=== PATIENT | male | born 1955 | race Hispanic/Latino ===

== ENCOUNTER 2018-02-12 16:54 | Inpatient (IN) | payer MEDICARE ==
[2018-02-12 17:45] LABS: BASO # 0.1 K/uL (0.0-0.2); BASO % 1.4 % (0.0-2.0); EOS # 0.2 K/uL (0.0-0.7); EOS % 2.1 % (0.0-4.0); HEMOGLOBIN 14.5 g/dL (12.0-18.0); LYMPH # 2.2 K/uL (1.0-4.3); LYMPH % 23.6 % (20.0-40.0); MEAN CELL VOLUME 94.5 fL (80.0-94.0); MEAN CORPUSCULAR HEMOGLOBIN 32.3 pg (27.0-31.0); MEAN CORPUSCULAR HGB CONC 34.2 g/dL (33.0-37.0); MEAN PLATELET VOLUME 10.9 fL (7.2-11.7); MONO # 0.8 K/uL (0.0-0.8); MONO % 8.7 % (0.0-10.0); NEUT % 64.2 % (50.0-75.0); RBC 4.47 Mil/uL (4.40-5.90); RED CELL DISTRIBUTION WIDTH 13.2 % (11.5-14.5); WHITE BLOOD COUNT 9.3 K/uL (4.8-10.8)
[2018-02-12 18:00] LABS: ALB/GLOB RATIO 1.3 (1.0-2.1); ALBUMIN 4.4 g/dL (3.5-5.0); ALT/SGPT 53 U/L (21-72); AST/SGOT 42 U/L (17-59); BLOOD UREA NITROGEN 16 mg/dL (9-20); CALCIUM 9.7 mg/dl (8.6-10.4); GFR AFRICAN-AMERICAN > 60; GFR NON-AFRICAN AMERICAN > 60
[2018-02-12 18:10] LABS: B-TYPE NATRIURETIC PEPTIDE 38.8 pg/mL (0-900)
[2018-02-12] MEDS ORDERED: Atropine Sulfate 1 mg/ml Vial (1 ml) IVP STA (18:15)
[2018-02-12 18:17] LABS: URINE BACTERIA RARE (<OCC); URINE BILIRUBIN NEGATIVE (NEGATIVE); URINE BLOOD NEGATIVE (NEGATIVE); URINE CLARITY Clear (Clear); URINE COLOR Yellow (YELLOW); URINE GLUCOSE (UA) 3+ mg/dL (Normal); URINE LEUKOCYTE ESTERASE NEG Leu/uL (Negative); URINE PROTEIN 1+ mg/dL (NEGATIVE)
[2018-02-12 18:30] LABS: INR 1.1; PROTHROMBIN TIME 12.2 SECONDS (9.7-12.2)
[2018-02-12] MEDS ORDERED: (Novolin R) Insulin Human Regular 100 units/ml vial IV STA (18:36)
[2018-02-12] MEDS ORDERED: (Novolin R) Insulin Human Regular 100 units/ml vial ONE (18:42)
--- NOTE | 2018-02-12 18:51 | C.PDOC ---
Time Seen by Provider: 02/12/18 17:09 Chief Complaint (Nursing): Dizziness/Lightheaded History Per: Patient, Family Onset/Duration Of Symptoms: Hrs (since this afternoon) Current Symptoms Are (Timing): Still Present Associated Symptoms Preceding Syncopal Episode: Lightheadedness, Worse With Standing Possible Causative Factor(s): Lightheaded W/Exertion Fall Associated With With Symptoms: No Severity: Moderate Additional History Per: Prior Records - Symptoms Of CVA Recent Head Trauma: No Past Medical History Reviewed: Historical Data, Nursing Documentation, Vital Signs Vital Signs: Last Vital Signs Temp 97.5 F L 02/12/18 16:59 Pulse 30 L 02/12/18 18:42 Resp 18 02/12/18 18:42 BP 145/49 L 02/12/18 18:42 Pulse Ox 96 02/12/18 18:51 - Medical History PMH: Diabetes, HTN Surgical History: No Surg Hx Family History: States: Unknown Family Hx - Social History Hx Tobacco Use: No Hx Alcohol Use: Yes Hx Substance Use: No - Immunization History Hx Tetanus Toxoid Vaccination: No Hx Influenza Vaccination: No Hx Pneumococcal Vaccination: No Review Of Systems Except As Marked, All Systems Reviewed And Found Negative. Constitutional: Negative for: Fever Cardiovascular: Positive for: Light Headedness. Negative for: Chest Pain Respiratory: Positive for: Shortness of Breath. Negative for: Hemoptysis Gastrointestinal: Negative for: Vomiting, Abdominal Pain, Diarrhea Musculoskeletal: Negative for: Neck Pain, Back Pain, Leg Pain Skin: Negative for: Rash Neurological: Negative for: Weakness, Numbness, Seizures Physical Exam - Physical Exam Appears: Non-toxic, No Acute Distress Skin: Normal Color, Warm, Dry Head: Atraumatic, Normacephalic Eye(s): bilateral: Normal Inspection, PERRL, EOMI Neck: Normal ROM, Supple Cardiovascular: Rhythm Regular (bradycardia) Respiratory: Normal Breath Sounds, No Accessory Muscle Use Gastrointestinal/Abdominal: Soft, No Tenderness Extremity: Normal ROM, No Pedal Edema, No Calf Tenderness Neurological/Psych: Oriented x3, Normal Motor, Normal Sensation ED Course And Treatment - Laboratory Results Result Diagrams: 02/12/18 17:36 02/12/18 17:36 Interpretation Of Abnormal: mild-mod hyperglycemia ECG: Viewed By Me, Discussed With [employer] Service Technician ECG Rhythm: 3rd Degree HB, Nonspecific Changes ECG Interpretation: Abnormal Rate From EC O2 Sat by Pulse Oximetry: 96 Pulse Ox Interpretation: Normal - Radiology CXR: Interpreted by Me, Viewed By Me CXR Interpretation: Yes: No Acute Disease - Physician Consult Information Physician Contacted: Preston Hunt Outcome Of Conversation: He recommended giving pt Atropine 0.5mg IVP. Then recommended starting pt on Dopamine drip after no response from Atropine. Pt d/ w Dr. Anderson who accepted to ICU. Progress - Interventions Interventions:: Observation, Oxygen - Medications Administered Intravenous: Other (Atropine. Insulin.) - Data Reviewed Data Reviewed: Lab, Diagnostic imaging, EKG, Old records - Patient Status Patient status: Unchanged - Critical Care Citical Care: Excluding Proc Time Critical Care Time: 60 minutes - Continuity of Care Discussed patient case with:: Patient, Family-HIPPA compliant, ED Nurse, On- call PMD-pt unassigned Discussed pt. case with [employer] sales consultant/specialty: Cardiology, Pulmonary/Crit. Care - Patient Plan Patient Plan: Admission, ICU Disposition Discussed With Dr.: Huong Nixon Comment: He accepted pt on his service. Doctor Will See Patient In The: Hospital Counseled Patient/Family Regarding: Studies Performed, Diagnosis - Disposition Disposition: HOSPITALIZED Disposition Time: 18:45 Condition: CRITICAL - Clinical Impression Clinical Impression: Heart block AV third degree
[2018-02-12] MEDS ORDERED: DOPamine 400mg/250ml D5W 400 MG/250 ML BAG IV PRN (18:54)
[2018-02-12] MEDS ORDERED: DOPamine 400mg/250ml D5W 400 MG/250 ML BAG IV ONE (19:00)
--- NOTE | 2018-02-12 19:48 | CP.PCM.CON ---
History of Present Illness - History of Present Illness History of Present Illness: 62 y/o male with pmx of DM, HTN presents to [facility] with c/o dizziness and nausea. PAtient was noted to be in 3rd degree block. Patient denies any abdominal pain, denies any dizziness, denies any blurry vision. PAtietn denies taking any medicaitons which decrease heart rate. Review of Systems - Review of Systems Review of Systems: (+)dizzines, (+)nausea Past Patient History - Infectious Disease Hx of Infectious Diseases: None - Past Medical History & Family History Past Medical History?: Yes - Past Social History Smoking Status: Never Smoked - CARDIAC Hx Hypertension: Yes - ENDOCRINE/METABOLIC Hx Diabetes Mellitus Type 1: Yes - PSYCHIATRIC Hx Substance Use: No - SURGICAL HISTORY Hx Surgeries: No - ANESTHESIA Hx Anesthesia: No Meds Allergies/Adverse Reactions: Allergies Allergy/AdvReac Type Severity Reaction Status Date / Time Penicillins Allergy Verified 02/12/18 17:05 - Medications Medications: Current Medications Dopamine HCl/Dextrose (Dopamine 400mg/250ml D5w) 400 mg in 250 mls @ 14.288 mls /hr IV .[id number] PRN; Protocol; 5 MCG/KG/MIN PRN Reason: TITRATE PER MD ORDER Last Admin: 02/12/18 19:04 Dose: 14.288 mls/hr Physical Exam - Head Exam Head Exam: ATRAUMATIC, NORMAL INSPECTION, NORMOCEPHALIC - Eye Exam Eye Exam: EOMI, Normal appearance Pupil Exam: NORMAL ACCOMODATION, PERRL - ENT Exam ENT Exam: Mucous Membranes Moist - Neck Exam Neck exam: Positive for: Normal Inspection - Respiratory Exam Respiratory Exam: Clear to Auscultation Bilateral, NORMAL BREATHING PATTERN - Cardiovascular Exam Cardiovascular Exam: REGULAR RHYTHM, +S1, +S2, +S4 - GI/Abdominal Exam GI & Abdominal Exam: Normal Bowel Sounds, Soft - Extremities Exam Extremities exam: Positive for: normal inspection Results - Vital Signs Recent Vital Signs: Last Vital Signs Temp 97.5 F L 02/12/18 16:59 Pulse 51 L 02/12/18 19:05 Resp 18 02/12/18 19:05 BP 145/69 02/12/18 19:05 Pulse Ox 99 02/12/18 19:05 - Labs Result Diagrams: 02/12/18 17:36 02/12/18 17:36 Labs: Laboratory Results - last 24 hr 02/12/18 02/12/18 02/12/18 17:01 17:36 17:36 WBC 9.3 RBC 4.47 Hgb 14.5 Hct 42.3 MCV 94.5 H MCH 32.3 H MCHC 34.2 RDW 13.2 Plt Count 203 MPV 10.9 Neut % (Auto) 64.2 Lymph % (Auto) 23.6 [place] % (Auto) 8.7 Eos % (Auto) 2.1 Baso % (Auto) 1.4 Neut # (Auto) 6.0 Lymph # (Auto) 2.2 [place] # (Auto) 0.8 Eos # (Auto) 0.2 Baso # (Auto) 0.1 PT INR APTT Sodium 139 Potassium 5.1 Chloride 99 Carbon Dioxide 27 Anion Gap 18 BUN 16 Creatinine 1.0 Est GFR ( Amer) > 60 Est GFR (Non-Af Amer) > 60 POC Glucose (mg/dL) 353 H Random Glucose 383 H Calcium 9.7 Magnesium 1.8 Total Bilirubin 0.7 AST 42 ALT 53 Alkaline Phosphatase 79 Troponin I < 0.0120 NT-Pro-B Natriuret Pep 38.8 Total Protein 7.7 Albumin 4.4 Globulin 3.4 Albumin/Globulin Ratio 1.3 Urine Color Urine Clarity Urine pH Ur Specific [place] Urine Protein Urine Glucose (UA) Urine Ketones Urine Blood Urine Nitrate Urine Bilirubin Urine Urobilinogen Ur Leukocyte Esterase Urine WBC (Auto) Urine RBC (Auto) Urine Bacteria 02/12/18 02/12/18 17:57 18:19 WBC RBC Hgb Hct MCV MCH MCHC RDW Plt Count MPV Neut % (Auto) Lymph % (Auto) [place] % (Auto) Eos % (Auto) Baso % (Auto) Neut # (Auto) Lymph # (Auto) [place] # (Auto) Eos # (Auto) Baso # (Auto) PT 12.2 INR 1.1 APTT 30 Sodium Potassium Chloride Carbon Dioxide Anion Gap BUN Creatinine Est GFR ( Amer) Est GFR (Non-Af Amer) POC Glucose (mg/dL) Random Glucose Calcium Magnesium Total Bilirubin AST ALT Alkaline Phosphatase Troponin I NT-Pro-B Natriuret Pep Total Protein Albumin Globulin Albumin/Globulin Ratio Urine Color Yellow Urine Clarity Clear Urine pH 6.0 Ur Specific [place] 1.029 Urine Protein 1+ H Urine Glucose (UA) 3+ H Urine Ketones Negative Urine Blood Negative Urine Nitrate Negative Urine Bilirubin Negative Urine Urobilinogen 4.0 Ur Leukocyte Esterase Neg Urine WBC (Auto) 1 Urine RBC (Auto) 1 Urine Bacteria Rare Assessment & Plan - Assessment and Plan (Free Text) Assessment: 3rd degree heart block: continue dopamine as per cardiology, will need EP for PPM, check TSH and RPR, lyme, etiology, ? ischemic or other etiologies, check echo, DM: takes oral metformin, will switch to sub q premeals, at risk of cad, start asa and statin -remains hemodynamically stable -NPO post midnight if PPM to be placed in AM (thursday) -DVT ppx heparin SQ -pud ppx not indicated Dr. Hunt informed and consulted regarding above patient. continue to monitor cc time 32 minutes d/e ER physician - Date & Time Date: 02/12/18 Time: 19:48
[2018-02-12] MEDS ORDERED: Aspirin 325 mg EC Tablets PO STA (20:00)
--- NOTE | 2018-02-12 21:01 | CP.PCM.HP ---
Past Patient History - Infectious Disease Hx of Infectious Diseases: None - Past Medical History & Family History Past Medical History?: Yes - Past Social History Smoking Status: Never Smoked - CARDIAC Hx Hypertension: Yes - ENDOCRINE/METABOLIC Hx Diabetes Mellitus Type 1: Yes - PSYCHIATRIC Hx Substance Use: No - SURGICAL HISTORY Hx Surgeries: No - ANESTHESIA Hx Anesthesia: No Meds Allergies/Adverse Reactions: Allergies Allergy/AdvReac Type Severity Reaction Status Date / Time Penicillins Allergy Verified 02/12/18 17:05 Physical Exam - Constitutional Appears: Well - Head Exam Head Exam: ATRAUMATIC, NORMAL INSPECTION, NORMOCEPHALIC - Eye Exam Eye Exam: EOMI, Normal appearance, PERRL Pupil Exam: NORMAL ACCOMODATION, PERRL - ENT Exam ENT Exam: Mucous Membranes Moist, Normal Exam - Neck Exam Neck exam: Positive for: Normal Inspection - Respiratory Exam Respiratory Exam: Decreased Breath Sounds - Cardiovascular Exam Cardiovascular Exam: REGULAR RHYTHM, +S1, +S2 - GI/Abdominal Exam GI & Abdominal Exam: Diminished Bowel Sounds, Soft - Rectal Exam Rectal Exam: Deferred Results - Vital Signs Recent Vital Signs: Last Vital Signs Temp 97.5 F L 02/12/18 16:59 Pulse 52 L 02/12/18 19:42 Resp 18 02/12/18 19:42 BP 128/60 02/12/18 19:42 Pulse Ox 98 02/12/18 19:42 - Labs Result Diagrams: 02/12/18 17:36 02/12/18 17:36 Labs: Laboratory Results - last 24 hr 02/12/18 02/12/18 02/12/18 17:01 17:36 17:36 WBC 9.3 RBC 4.47 Hgb 14.5 Hct 42.3 MCV 94.5 H MCH 32.3 H MCHC 34.2 RDW 13.2 Plt Count 203 MPV 10.9 Neut % (Auto) 64.2 Lymph % (Auto) 23.6 [place] % (Auto) 8.7 Eos % (Auto) 2.1 Baso % (Auto) 1.4 Neut # (Auto) 6.0 Lymph # (Auto) 2.2 [place] # (Auto) 0.8 Eos # (Auto) 0.2 Baso # (Auto) 0.1 PT INR APTT Sodium 139 Potassium 5.1 Chloride 99 Carbon Dioxide 27 Anion Gap 18 BUN 16 Creatinine 1.0 Est GFR ( Amer) > 60 Est GFR (Non-Af Amer) > 60 POC Glucose (mg/dL) 353 H Random Glucose 383 H Calcium 9.7 Magnesium 1.8 Total Bilirubin 0.7 AST 42 ALT 53 Alkaline Phosphatase 79 Troponin I < 0.0120 NT-Pro-B Natriuret Pep 38.8 Total Protein 7.7 Albumin 4.4 Globulin 3.4 Albumin/Globulin Ratio 1.3 Urine Color Urine Clarity Urine pH Ur Specific [place] Urine Protein Urine Glucose (UA) Urine Ketones Urine Blood Urine Nitrate Urine Bilirubin Urine Urobilinogen Ur Leukocyte Esterase Urine WBC (Auto) Urine RBC (Auto) Urine Bacteria 02/12/18 02/12/18 02/12/18 17:57 18:19 19:45 WBC RBC Hgb Hct MCV MCH MCHC RDW Plt Count MPV Neut % (Auto) Lymph % (Auto) [place] % (Auto) Eos % (Auto) Baso % (Auto) Neut # (Auto) Lymph # (Auto) [place] # (Auto) Eos # (Auto) Baso # (Auto) PT 12.2 INR 1.1 APTT 30 Sodium Potassium Chloride Carbon Dioxide Anion Gap BUN Creatinine Est GFR ( Amer) Est GFR (Non-Af Amer) POC Glucose (mg/dL) 88 Random Glucose Calcium Magnesium Total Bilirubin AST ALT Alkaline Phosphatase Troponin I NT-Pro-B Natriuret Pep Total Protein Albumin Globulin Albumin/Globulin Ratio Urine Color Yellow Urine Clarity Clear Urine pH 6.0 Ur Specific [place] 1.029 Urine Protein 1+ H Urine Glucose (UA) 3+ H Urine Ketones Negative Urine Blood Negative Urine Nitrate Negative Urine Bilirubin Negative Urine Urobilinogen 4.0 Ur Leukocyte Esterase Neg Urine WBC (Auto) 1 Urine RBC (Auto) 1 Urine Bacteria Rare
[2018-02-13] MEDS: DOPamine 400mg/250ml D5W 400 MG/250 ML BAG IV PRN ×2 (06:04→19:30)
[2018-02-13] MEDS: Sodium Chloride 0.9% 1,000 ML IV SCH ×3 (06:05→19:35)
[2018-02-13 06:20] LABS: BASO # 0.1 K/uL (0.0-0.2); BASO % 0.8 % (0.0-2.0); EOS # 0.1 K/uL (0.0-0.7); EOS % 1.4 % (0.0-4.0); HEMOGLOBIN 12.5 g/dL (12.0-18.0); LYMPH # 1.7 K/uL (1.0-4.3); LYMPH % 18.5 % (20.0-40.0); MEAN CELL VOLUME 94.2 fL (80.0-94.0); MEAN CORPUSCULAR HEMOGLOBIN 32.5 pg (27.0-31.0); MEAN CORPUSCULAR HGB CONC 34.5 g/dL (33.0-37.0); MEAN PLATELET VOLUME 11.2 fL (7.2-11.7); MONO # 0.6 K/uL (0.0-0.8); MONO % 6.3 % (0.0-10.0); NEUT # 6.8 K/uL (1.8-7.0); RBC 3.85 Mil/uL (4.40-5.90); RED CELL DISTRIBUTION WIDTH 13.2 % (11.5-14.5); WHITE BLOOD COUNT 9.3 K/uL (4.8-10.8)
[2018-02-13 06:40] LABS: INR 1.2; PROTHROMBIN TIME 12.9 SECONDS (9.7-12.2)
[2018-02-13 06:42] LABS: ALB/GLOB RATIO 1.2 (1.0-2.1); ALBUMIN 3.8 g/dL (3.5-5.0); ALT/SGPT 46 U/L (21-72); AST/SGOT 26 U/L (17-59); B-TYPE NATRIURETIC PEPTIDE 111 pg/mL (0-900); BLOOD UREA NITROGEN 15 mg/dL (9-20); CALCIUM 9.1 mg/dl (8.6-10.4); GFR AFRICAN-AMERICAN > 60; GFR NON-AFRICAN AMERICAN > 60
--- NOTE | 2018-02-13 09:36 | RAD ---
Date of service: 02/12/2018 HISTORY: Bradycardia COMPARISON: No prior. FINDINGS: LUNGS: No active pulmonary disease. PLEURA: No significant pleural effusion identified, no pneumothorax apparent. CARDIOVASCULAR: Normal. Note is made of external pacemaker device at the inferior chest. OSSEOUS STRUCTURES: No significant abnormalities. VISUALIZED UPPER ABDOMEN: Normal. OTHER FINDINGS: None. IMPRESSION: No acute cardiopulmonary disease appreciable. External pacemaker identified placed.
[2018-02-13] MEDS ORDERED: Glucagon Recombinant 1 mg Inj IM PRN (14:30)
[2018-02-13] MEDS ORDERED: Dextrose 50% SYRINGE Inj (50 ml) IV PRN (14:30)
--- NOTE | 2018-02-13 14:33 | CP.CCUPN ---
CCU Subjective - Physician Review Events Since Last Encounter (Free Text): 02/13/18 14:31 no complaints CCU Objective - Vital Signs / Intake & Output Vital Signs (Last 4 hours): Vital Signs Temp Pulse Resp BP Pulse Ox 02/13/18 14:00 40 L 18 97 02/13/18 13:58 41 L 21 130/61 02/13/18 13:00 44 L 11 L 98 02/13/18 12:58 42 L 15 138/58 L 97 02/13/18 12:00 97.8 F 44 L 21 98 02/13/18 11:58 42 L 18 135/56 L 97 02/13/18 11:00 44 L 18 99 02/13/18 10:58 44 L 15 135/57 L Intake and Output (Last 8hrs): Intake & Output 02/12/18 02/13/18 02/13/18 22:59 06:59 14:59 Intake Total 148.4 217.2 1194.4 Output Total 500 Balance 148.4 -282.8 1194.4 Weight 168 lb 168 lb Intake: IV 0 Intake, IV Amount 28.4 217.2 714.4 Right 28.4 211.5 600 Right Antecubital - Y- 5.7 114.4 Port Oral 120 0 480 Output: Urine 500 Urine, Voided 500 Other: # Voids Urine, Voided 0 0 0 # Bowel Movements 0 0 - Physical Exam Head: Positive for: Atraumatic, Normocephalic Pupils: Positive for: PERRL Extroacular Muscles: Positive for: EOMI Conjunctiva: Positive for: Normal Mouth: Positive for: Moist Mucous Membranes Neck: Positive for: Normal Range of Motion Respiratory/Chest: Positive for: Clear to Auscultation, Good Air Exchange Cardiovascular: Positive for: Normal S1, S2, Tachycardic Abdomen: Positive for: Normal Bowel Sounds. Negative for: Tenderness, Distention Upper Extremity: Positive for: Normal Inspection Lower Extremity: Positive for: Normal Inspection Neurological: Positive for: GCS=15, CN II-XII Intact Psychiatric: Positive for: Alert, Oriented x 3 - Medications Active Medications: Active Medications Generic Name Dose Route Start Last Admin Trade Name Freq PRN Reason Stop Dose Admin Aspirin 81 mg 02/13/18 10:00 02/13/18 09:15 Aspirin Chewable PO 81 mg DAILY ROSALIE Administration Famotidine 20 mg 02/13/18 10:00 02/13/18 09:15 Pepcid PO 20 mg DAILY ROSALIE Administration Heparin Sodium (Porcine) 5,000 units 02/12/18 22:00 02/13/18 14:07 Heparin SC 5,000 units Q8 ROSALIE Administration Sodium Chloride 1,000 mls @ 75 mls/hr 02/13/18 05:15 02/13/18 06:05 Sodium Chloride 0.9% IV 75 mls/hr .[id number] ROSALIE Administration Dopamine HCl/Dextrose 400 mg in 250 mls @ 5.715 mls/hr 02/13/18 05:49 06:19 Dopamine 400mg/250ml D5w IV 5 mcg/kg/min .Q24H PRN 14.288 mls/hr TITRATE PER MD ORDER Titration Protocol 2 MCG/KG/MIN Pneumococcal Polyvalent Vaccine 0.5 ml 02/14/18 10:00 Pneumovax 23 Vaccine IM 02/14/18 10:01 .ONCE ONE Rosuvastatin Calcium 5 mg 02/12/18 22:00 02/12/18 21:34 Crestor PO 5 mg HS ROSALIE Administration - Patient Studies Lab Studies: Lab Studies 02/13/18 02/13/18 02/13/18 Range/Units 12:34 06:28 06:05 WBC (4.8-10.8) K/uL RBC (4.40-5.90) Mil/uL Hgb (12.0-18.0) g/dL Hct (35.0-51.0) % MCV (80.0-94.0) fL MCH (27.0-31.0) pg MCHC (33.0-37.0) g/dL RDW (11.5-14.5) % Plt Count (130-400) K/uL MPV (7.2-11.7) fL Neut % (Auto) (50.0-75.0) % Lymph % (Auto) (20.0-40.0) % Craig % (Auto) (0.0-10.0) % Eos % (Auto) (0.0-4.0) % Baso % (Auto) (0.0-2.0) % Neut # (Auto) (1.8-7.0) K/uL Lymph # (Auto) (1.0-4.3) K/uL Craig # (Auto) (0.0-0.8) K/uL Eos # (Auto) (0.0-0.7) K/uL Baso # (Auto) (0.0-0.2) K/uL PT 12.9 H (9.7-12.2) SECONDS INR 1.2 APTT 28 (21-34) SECONDS Sodium (132-148) mmol/L Potassium (3.6-5.2) mmol/L Chloride (98-107) mmol/L Carbon Dioxide (22-30) mmol/L Anion Gap (10-20) BUN (9-20) mg/dL Creatinine (0.8-1.5) mg/dL Est GFR ( Amer) Est GFR (Non-Af Amer) POC Glucose (mg/dL) 145 H (65-110) mg/dL Random Glucose (75-110) mg/dL Calcium (8.6-10.4) mg/dl Phosphorus (2.5-4.5) mg/dL Magnesium (1.6-2.3) mg/dL Total Bilirubin (0.2-1.3) mg/dL AST (17-59) U/L ALT (21-72) U/L Alkaline Phosphatase (38-126) U/L Troponin I < 0.0120 (0.00-0.120) ng/mL NT-Pro-B Natriuret Pep (0-900) pg/mL Total Protein (6.3-8.3) g/dL Albumin (3.5-5.0) g/dL Globulin (2.2-3.9) gm/dL Albumin/Globulin Ratio (1.0-2.1) TSH 3rd Generation (0.46-4.68) mIU/L Urine Color (YELLOW) Urine Clarity (Clear) Urine pH (5.0-8.0) Ur Specific Chappell (1.003-1.030) Urine Protein (NEGATIVE) mg/dL Urine Glucose (UA) (Normal) mg/dL Urine Ketones (NEGATIVE) mg/dL Urine Blood (NEGATIVE) Urine Nitrate (NEGATIVE) Urine Bilirubin (NEGATIVE) Urine Urobilinogen (0.2-1.0) mg/dL Ur Leukocyte Esterase (Negative) Jaida/uL Urine WBC (Auto) (0-5) /hpf Urine RBC (Auto) (0-3) /hpf Urine Bacteria (<OCC) 02/13/18 02/13/18 02/13/18 Range/Units 06:05 06:05 01:35 WBC 9.3 (4.8-10.8) K/uL RBC 3.85 L (4.40-5.90) Mil/uL Hgb 12.5 D (12.0-18.0) g/dL Hct 36.3 (35.0-51.0) % MCV 94.2 H (80.0-94.0) fL MCH 32.5 H (27.0-31.0) pg MCHC 34.5 (33.0-37.0) g/dL RDW 13.2 (11.5-14.5) % Plt Count 185 (130-400) K/uL MPV 11.2 (7.2-11.7) fL Neut % (Auto) 73.0 (50.0-75.0) % Lymph % (Auto) 18.5 L (20.0-40.0) % Craig % (Auto) 6.3 (0.0-10.0) % Eos % (Auto) 1.4 (0.0-4.0) % Baso % (Auto) 0.8 (0.0-2.0) % Neut # (Auto) 6.8 (1.8-7.0) K/uL Lymph # (Auto) 1.7 (1.0-4.3) K/uL Craig # (Auto) 0.6 (0.0-0.8) K/uL Eos # (Auto) 0.1 (0.0-0.7) K/uL Baso # (Auto) 0.1 (0.0-0.2) K/uL PT (9.7-12.2) SECONDS INR APTT (21-34) SECONDS Sodium 142 (132-148) mmol/L Potassium 4.1 (3.6-5.2) mmol/L Chloride 103 (98-107) mmol/L Carbon Dioxide 26 (22-30) mmol/L Anion Gap 16 (10-20) BUN 15 (9-20) mg/dL Creatinine 0.8 (0.8-1.5) mg/dL Est GFR ( Amer) > 60 Est GFR (Non-Af Amer) > 60 POC Glucose (mg/dL) (65-110) mg/dL Random Glucose 135 H (75-110) mg/dL Calcium 9.1 (8.6-10.4) mg/dl Phosphorus 3.6 (2.5-4.5) mg/dL Magnesium 1.7 (1.6-2.3) mg/dL Total Bilirubin 0.6 (0.2-1.3) mg/dL AST 26 (17-59) U/L ALT 46 (21-72) U/L Alkaline Phosphatase 65 (38-126) U/L Troponin I < 0.0120 < 0.0120 (0.00-0.120) ng/mL NT-Pro-B Natriuret Pep 111 (0-900) pg/mL Total Protein 6.9 (6.3-8.3) g/dL Albumin 3.8 (3.5-5.0) g/dL Globulin 3.1 (2.2-3.9) gm/dL Albumin/Globulin Ratio 1.2 (1.0-2.1) TSH 3rd Generation 1.48 (0.46-4.68) mIU/L Urine Color (YELLOW) Urine Clarity (Clear) Urine pH (5.0-8.0) Ur Specific Chappell (1.003-1.030) Urine Protein (NEGATIVE) mg/dL Urine Glucose (UA) (Normal) mg/dL Urine Ketones (NEGATIVE) mg/dL Urine Blood (NEGATIVE) Urine Nitrate (NEGATIVE) Urine Bilirubin (NEGATIVE) Urine Urobilinogen (0.2-1.0) mg/dL Ur Leukocyte Esterase (Negative) Jaida/uL Urine WBC (Auto) (0-5) /hpf Urine RBC (Auto) (0-3) /hpf Urine Bacteria (<OCC) 02/12/18 02/12/18 02/12/18 Range/Units 22:01 19:45 18:19 WBC (4.8-10.8) K/uL RBC (4.40-5.90) Mil/uL Hgb (12.0-18.0) g/dL Hct (35.0-51.0) % MCV (80.0-94.0) fL MCH (27.0-31.0) pg MCHC (33.0-37.0) g/dL RDW (11.5-14.5) % Plt Count (130-400) K/uL MPV (7.2-11.7) fL Neut % (Auto) (50.0-75.0) % Lymph % (Auto) (20.0-40.0) % Craig % (Auto) (0.0-10.0) % Eos % (Auto) (0.0-4.0) % Baso % (Auto) (0.0-2.0) % Neut # (Auto) (1.8-7.0) K/uL Lymph # (Auto) (1.0-4.3) K/uL Craig # (Auto) (0.0-0.8) K/uL Eos # (Auto) (0.0-0.7) K/uL Baso # (Auto) (0.0-0.2) K/uL PT 12.2 (9.7-12.2) SECONDS INR 1.1 APTT 30 (21-34) SECONDS Sodium (132-148) mmol/L Potassium (3.6-5.2) mmol/L Chloride (98-107) mmol/L Carbon Dioxide (22-30) mmol/L Anion Gap (10-20) BUN (9-20) mg/dL Creatinine (0.8-1.5) mg/dL Est GFR ( Amer) Est GFR (Non-Af Amer) POC Glucose (mg/dL) 144 H 88 (65-110) mg/dL Random Glucose (75-110) mg/dL Calcium (8.6-10.4) mg/dl Phosphorus (2.5-4.5) mg/dL Magnesium (1.6-2.3) mg/dL Total Bilirubin (0.2-1.3) mg/dL AST (17-59) U/L ALT (21-72) U/L Alkaline Phosphatase (38-126) U/L Troponin I (0.00-0.120) ng/mL NT-Pro-B Natriuret Pep (0-900) pg/mL Total Protein (6.3-8.3) g/dL Albumin (3.5-5.0) g/dL Globulin (2.2-3.9) gm/dL Albumin/Globulin Ratio (1.0-2.1) TSH 3rd Generation (0.46-4.68) mIU/L Urine Color (YELLOW) Urine Clarity (Clear) Urine pH (5.0-8.0) Ur Specific Chappell (1.003-1.030) Urine Protein (NEGATIVE) mg/dL Urine Glucose (UA) (Normal) mg/dL Urine Ketones (NEGATIVE) mg/dL Urine Blood (NEGATIVE) Urine Nitrate (NEGATIVE) Urine Bilirubin (NEGATIVE) Urine Urobilinogen (0.2-1.0) mg/dL Ur Leukocyte Esterase (Negative) Jaida/uL Urine WBC (Auto) (0-5) /hpf Urine RBC (Auto) (0-3) /hpf Urine Bacteria (<OCC) 02/12/18 02/12/18 02/12/18 Range/Units 17:57 17:36 17:36 WBC 9.3 (4.8-10.8) K/uL RBC 4.47 (4.40-5.90) Mil/uL Hgb 14.5 (12.0-18.0) g/dL Hct 42.3 (35.0-51.0) % MCV 94.5 H (80.0-94.0) fL MCH 32.3 H (27.0-31.0) pg MCHC 34.2 (33.0-37.0) g/dL RDW 13.2 (11.5-14.5) % Plt Count 203 (130-400) K/uL MPV 10.9 (7.2-11.7) fL Neut % (Auto) 64.2 (50.0-75.0) % Lymph % (Auto) 23.6 (20.0-40.0) % Craig % (Auto) 8.7 (0.0-10.0) % Eos % (Auto) 2.1 (0.0-4.0) % Baso % (Auto) 1.4 (0.0-2.0) % Neut # (Auto) 6.0 (1.8-7.0) K/uL Lymph # (Auto) 2.2 (1.0-4.3) K/uL Craig # (Auto) 0.8 (0.0-0.8) K/uL Eos # (Auto) 0.2 (0.0-0.7) K/uL Baso # (Auto) 0.1 (0.0-0.2) K/uL PT (9.7-12.2) SECONDS INR APTT (21-34) SECONDS Sodium 139 (132-148) mmol/L Potassium 5.1 (3.6-5.2) mmol/L Chloride 99 (98-107) mmol/L Carbon Dioxide 27 (22-30) mmol/L Anion Gap 18 (10-20) BUN 16 (9-20) mg/dL Creatinine 1.0 (0.8-1.5) mg/dL Est GFR ( Amer) > 60 Est GFR (Non-Af Amer) > 60 POC Glucose (mg/dL) (65-110) mg/dL Random Glucose 383 H (75-110) mg/dL Calcium 9.7 (8.6-10.4) mg/dl Phosphorus (2.5-4.5) mg/dL Magnesium 1.8 (1.6-2.3) mg/dL Total Bilirubin 0.7 (0.2-1.3) mg/dL AST 42 (17-59) U/L ALT 53 (21-72) U/L Alkaline Phosphatase 79 (38-126) U/L Troponin I < 0.0120 (0.00-0.120) ng/mL NT-Pro-B Natriuret Pep 38.8 (0-900) pg/mL Total Protein 7.7 (6.3-8.3) g/dL Albumin 4.4 (3.5-5.0) g/dL Globulin 3.4 (2.2-3.9) gm/dL Albumin/Globulin Ratio 1.3 (1.0-2.1) TSH 3rd Generation (0.46-4.68) mIU/L Urine Color Yellow (YELLOW) Urine Clarity Clear (Clear) Urine pH 6.0 (5.0-8.0) Ur Specific Chappell 1.029 (1.003-1.030) Urine Protein 1+ H (NEGATIVE) mg/dL Urine Glucose (UA) 3+ H (Normal) mg/dL Urine Ketones Negative (NEGATIVE) mg/dL Urine Blood Negative (NEGATIVE) Urine Nitrate Negative (NEGATIVE) Urine Bilirubin Negative (NEGATIVE) Urine Urobilinogen 4.0 (0.2-1.0) mg/dL Ur Leukocyte Esterase Neg (Negative) Jaida/uL Urine WBC (Auto) 1 (0-5) /hpf Urine RBC (Auto) 1 (0-3) /hpf Urine Bacteria Rare (<OCC) 02/12/ Range/Units 17:01 WBC (4.8-10.8) K/uL RBC (4.40-5.90) Mil/uL Hgb (12.0-18.0) g/dL Hct (35.0-51.0) % MCV (80.0-94.0) fL MCH (27.0-31.0) pg MCHC (33.0-37.0) g/dL RDW (11.5-14.5) % Plt Count (130-400) K/uL MPV (7.2-11.7) fL Neut % (Auto) (50.0-75.0) % Lymph % (Auto) (20.0-40.0) % Craig % (Auto) (0.0-10.0) % Eos % (Auto) (0.0-4.0) % Baso % (Auto) (0.0-2.0) % Neut # (Auto) (1.8-7.0) K/uL Lymph # (Auto) (1.0-4.3) K/uL Craig # (Auto) (0.0-0.8) K/uL Eos # (Auto) (0.0-0.7) K/uL Baso # (Auto) (0.0-0.2) K/uL PT (9.7-12.2) SECONDS INR APTT (21-34) SECONDS Sodium (132-148) mmol/L Potassium (3.6-5.2) mmol/L Chloride (98-107) mmol/L Carbon Dioxide (22-30) mmol/L Anion Gap (10-20) BUN (9-20) mg/dL Creatinine (0.8-1.5) mg/dL Est GFR ( Amer) Est GFR (Non-Af Amer) POC Glucose (mg/dL) 353 H (65-110) mg/dL Random Glucose (75-110) mg/dL Calcium (8.6-10.4) mg/dl Phosphorus (2.5-4.5) mg/dL Magnesium (1.6-2.3) mg/dL Total Bilirubin (0.2-1.3) mg/dL AST (17-59) U/L ALT (21-72) U/L Alkaline Phosphatase (38-126) U/L Troponin I (0.00-0.120) ng/mL NT-Pro-B Natriuret Pep (0-900) pg/mL Total Protein (6.3-8.3) g/dL Albumin (3.5-5.0) g/dL Globulin (2.2-3.9) gm/dL Albumin/Globulin Ratio (1.0-2.1) TSH 3rd Generation (0.46-4.68) mIU/L Urine Color (YELLOW) Urine Clarity (Clear) Urine pH (5.0-8.0) Ur Specific Chappell (1.003-1.030) Urine Protein (NEGATIVE) mg/dL Urine Glucose (UA) (Normal) mg/dL Urine Ketones (NEGATIVE) mg/dL Urine Blood (NEGATIVE) Urine Nitrate (NEGATIVE) Urine Bilirubin (NEGATIVE) Urine Urobilinogen (0.2-1.0) mg/dL Ur Leukocyte Esterase (Negative) Jaida/uL Urine WBC (Auto) (0-5) /hpf Urine RBC (Auto) (0-3) /hpf Urine Bacteria (<OCC) Laboratory Results - last 24 hr 02/12/18 02/12/18 02/12/18 17:01 17:36 17:36 WBC 9.3 RBC 4.47 Hgb 14.5 Hct 42.3 MCV 94.5 H MCH 32.3 H MCHC 34.2 RDW 13.2 Plt Count 203 MPV 10.9 Neut % (Auto) 64.2 Lymph % (Auto) 23.6 Craig % (Auto) 8.7 Eos % (Auto) 2.1 Baso % (Auto) 1.4 Neut # (Auto) 6.0 Lymph # (Auto) 2.2 Craig # (Auto) 0.8 Eos # (Auto) 0.2 Baso # (Auto) 0.1 PT INR APTT Sodium 139 Potassium 5.1 Chloride 99 Carbon Dioxide 27 Anion Gap 18 BUN 16 Creatinine 1.0 Est GFR ( Amer) > 60 Est GFR (Non-Af Amer) > 60 POC Glucose (mg/dL) 353 H Random Glucose 383 H Calcium 9.7 Phosphorus Magnesium 1.8 Total Bilirubin 0.7 AST 42 ALT 53 Alkaline Phosphatase 79 Troponin I < 0.0120 NT-Pro-B Natriuret Pep 38.8 Total Protein 7.7 Albumin 4.4 Globulin 3.4 Albumin/Globulin Ratio 1.3 TSH 3rd Generation Urine Color Urine Clarity Urine pH Ur Specific Chappell Urine Protein Urine Glucose (UA) Urine Ketones Urine Blood Urine Nitrate Urine Bilirubin Urine Urobilinogen Ur Leukocyte Esterase Urine WBC (Auto) Urine RBC (Auto) Urine Bacteria 02/12/18 02/12/18 02/12/18 17:57 18:19 19:45 WBC RBC Hgb Hct MCV MCH MCHC RDW Plt Count MPV Neut % (Auto) Lymph % (Auto) Craig % (Auto) Eos % (Auto) Baso % (Auto) Neut # (Auto) Lymph # (Auto) Craig # (Auto) Eos # (Auto) Baso # (Auto) PT 12.2 INR 1.1 APTT 30 Sodium Potassium Chloride Carbon Dioxide Anion Gap BUN Creatinine Est GFR ( Amer) Est GFR (Non-Af Amer) POC Glucose (mg/dL) 88 Random Glucose Calcium Phosphorus Magnesium Total Bilirubin AST ALT Alkaline Phosphatase Troponin I NT-Pro-B Natriuret Pep Total Protein Albumin Globulin Albumin/Globulin Ratio TSH 3rd Generation Urine Color Yellow Urine Clarity Clear Urine pH 6.0 Ur Specific Chappell 1.029 Urine Protein 1+ H Urine Glucose (UA) 3+ H Urine Ketones Negative Urine Blood Negative Urine Nitrate Negative Urine Bilirubin Negative Urine Urobilinogen 4.0 Ur Leukocyte Esterase Neg Urine WBC (Auto) 1 Urine RBC (Auto) 1 Urine Bacteria Rare 02/12/18 02/13/18 02/13/18 22:01 01:35 06:05 WBC RBC Hgb Hct MCV MCH MCHC RDW Plt Count MPV Neut % (Auto) Lymph % (Auto) Craig % (Auto) Eos % (Auto) Baso % (Auto) Neut # (Auto) Lymph # (Auto) Craig # (Auto) Eos # (Auto) Baso # (Auto) PT INR APTT Sodium 142 Potassium 4.1 Chloride 103 Carbon Dioxide 26 Anion Gap 16 BUN 15 Creatinine 0.8 Est GFR ( Amer) > 60 Est GFR (Non-Af Amer) > 60 POC Glucose (mg/dL) 144 H Random Glucose 135 H Calcium 9.1 Phosphorus 3.6 Magnesium 1.7 Total Bilirubin 0.6 AST 26 ALT 46 Alkaline Phosphatase 65 Troponin I < 0.0120 < 0.0120 NT-Pro-B Natriuret Pep 111 Total Protein 6.9 Albumin 3.8 Globulin 3.1 Albumin/Globulin Ratio 1.2 TSH 3rd Generation 1.48 Urine Color Urine Clarity Urine pH Ur Specific Chappell Urine Protein Urine Glucose (UA) Urine Ketones Urine Blood Urine Nitrate Urine Bilirubin Urine Urobilinogen Ur Leukocyte Esterase Urine WBC (Auto) Urine RBC (Auto) Urine Bacteria 02/13/18 02/13/18 02/13/18 06:05 06:05 06:28 WBC 9.3 RBC 3.85 L Hgb 12.5 D Hct 36.3 MCV 94.2 H MCH 32.5 H MCHC 34.5 RDW 13.2 Plt Count 185 MPV 11.2 Neut % (Auto) 73.0 Lymph % (Auto) 18.5 L Craig % (Auto) 6.3 Eos % (Auto) 1.4 Baso % (Auto) 0.8 Neut # (Auto) 6.8 Lymph # (Auto) 1.7 Craig # (Auto) 0.6 Eos # (Auto) 0.1 Baso # (Auto) 0.1 PT 12.9 H INR 1.2 APTT 28 Sodium Potassium Chloride Carbon Dioxide Anion Gap BUN Creatinine Est GFR ( Amer) Est GFR (Non-Af Amer) POC Glucose (mg/dL) 145 H Random Glucose Calcium Phosphorus Magnesium Total Bilirubin AST ALT Alkaline Phosphatase Troponin I NT-Pro-B Natriuret Pep Total Protein Albumin Globulin Albumin/Globulin Ratio TSH 3rd Generation Urine Color Urine Clarity Urine pH Ur Specific Chappell Urine Protein Urine Glucose (UA) Urine Ketones Urine Blood Urine Nitrate Urine Bilirubin Urine Urobilinogen Ur Leukocyte Esterase Urine WBC (Auto) Urine RBC (Auto) Urine Bacteria 02/13/18 12:34 WBC RBC Hgb Hct MCV MCH MCHC RDW Plt Count MPV Neut % (Auto) Lymph % (Auto) Craig % (Auto) Eos % (Auto) Baso % (Auto) Neut # (Auto) Lymph # (Auto) Craig # (Auto) Eos # (Auto) Baso # (Auto) PT INR APTT Sodium Potassium Chloride Carbon Dioxide Anion Gap BUN Creatinine Est GFR ( Amer) Est GFR (Non-Af Amer) POC Glucose (mg/dL) Random Glucose Calcium Phosphorus Magnesium Total Bilirubin AST ALT Alkaline Phosphatase Troponin I < 0.0120 NT-Pro-B Natriuret Pep Total Protein Albumin Globulin Albumin/Globulin Ratio TSH 3rd Generation Urine Color Urine Clarity Urine pH Ur Specific Chappell Urine Protein Urine Glucose (UA) Urine Ketones Urine Blood Urine Nitrate Urine Bilirubin Urine Urobilinogen Ur Leukocyte Esterase Urine WBC (Auto) Urine RBC (Auto) Urine Bacteria EKG/Cardiology Studies: Cardiology / EKG Studies 02/12/18 17:23 ELECTROCARDIOGRAM Stat Comment: Mode Of Transportation: BED Reason For Exam: Dizzy Fingerstick Blood Sugar Results: 144 Review of Systems - Review of Systems All systems: reviewed and no additional remarkable complaints except (no complaints) Critical Care Progress Note - Nutrition Nutrition: Nutrition Category Date Time Status Diabetic [Consistent Carbohydrate] [DIET] Diets 02/12/18 Dinner Active Assessment/Plan (1) Heart block AV third degree Assessment and plan: 62 y/o male with pmx of DM, HTN presents to [facility] with c/o dizziness and nausea. PAtient was noted to be in 3rd degree block. Neuro: alert and oriented x 3 Pulm: no acute issues, breathing spontaneously on room air. CV: On dopamine to counter bradycardia from 3rd degree AV block, permanent PM placement planned. Cardio - Dr. Hunt Renal: no acute issues, urine output wnl GI: regular diet ID: no acute issues GI proph - not currently indicated DVT proph - heparin sq Code status - full code Critical Care Time spent 35 minutes Multi-disciplinary rounds were performed with house staff, nursing, speech therapy, respiratory therapy, pharmacy and nutrition with integrated input from the primary team/attending and other consulting services. The documented time is cumulative and includes review of patient data/exams/labs/chart review and examination of the patient on rounds and throughout the day; time is exclusive of any procedures or teaching time. Current Visit: Yes Status: Acute
[2018-02-13] MEDS ORDERED: Sodium Chloride 0.9% 500 ML IV ONE (15:17)
--- NOTE | 2018-02-13 15:40 | CP.PCM.PN ---
Subjective - Date & Time of Evaluation Date of Evaluation: 02/13/18 Time of Evaluation: 11:30 - Subjective Subjective: clinically same Objective - Vital Signs/Intake and Output Vital Signs (last 24 hours): Temp Pulse Resp BP Pulse Ox 97.8 F 44 L 25 H 128/72 97 02/13/18 12:00 02/13/18 15:22 02/13/18 15:22 02/13/18 15:22 02/13/18 15:22 Intake and Output: 02/13/18 02/13/18 06:59 18:59 Intake Total 365.6 1888.0 Output Total 500 Balance -134.4 1888.0 - Medications Medications: Current Medications Aspirin (Aspirin Chewable) 81 mg PO DAILY [facility] Last Admin: 02/13/18 09:15 Dose: 81 mg Dextrose (Dextrose 50% Inj) 0 ml IV STAT PRN; Protocol PRN Reason: Hypoglycemia Protocol Dextrose (Glutose 15) 0 gm PO ONCE PRN; Protocol PRN Reason: Hypoglycemia Protocol Famotidine (Pepcid) 20 mg PO DAILY [facility] Last Admin: 02/13/18 09:15 Dose: 20 mg Glucagon (Glucagen Diagnostic Kit) 0 mg IM STAT PRN; Protocol PRN Reason: Hypoglycemia Protocol Heparin Sodium (Porcine) (Heparin) 5,000 units SC Q8 [facility] Last Admin: 02/13/18 14:07 Dose: 5,000 units Sodium Chloride (Sodium Chloride 0.9%) 1,000 mls @ 75 mls/hr IV .[id number] [facility] Last Admin: 02/13/18 06:05 Dose: 75 mls/hr Dopamine HCl/Dextrose (Dopamine 400mg/250ml D5w) 400 mg in 250 mls @ 5.715 mls/ hr IV .Q24H PRN; Protocol; 2 MCG/KG/MIN PRN Reason: TITRATE PER MD ORDER Last Titration: 02/13/18 15:15 Dose: 10 mcg/kg/min, 28.577 mls/hr Dextrose (Dextrose 5% In Water 1000 Ml) 1,000 mls @ 0 mls/hr IV .Q0M PRN; Protocol; Per Protocol PRN Reason: Hypoglycemia Protocol Sodium Chloride (Sodium Chloride 0.9%) 500 mls @ 1,000 mls/hr IV .Q30M ONE Stop: 02/13/18 15:46 Last Admin: 02/13/18 15:23 Dose: 1,000 mls/hr Insulin Aspart (Novolog) 0 unit SC ACHS [facility] PRN Reason: Protocol Pneumococcal Polyvalent Vaccine (Pneumovax 23 Vaccine) 0.5 ml IM .ONCE ONE Stop: 02/14/18 10:01 Rosuvastatin Calcium (Crestor) 5 mg PO HS [facility] Last Admin: 02/12/18 21:34 Dose: 5 mg - Labs Labs: 02/13/18 06:05 02/13/18 06:05 PT 12.9 SECONDS (9.7-12.2) H 02/13/18 06:05 INR 1.2 02/13/18 06:05 APTT 28 SECONDS (21-34) 02/13/18 06:05 - Constitutional Appears: Well - Head Exam Head Exam: ATRAUMATIC, NORMAL INSPECTION, NORMOCEPHALIC - Eye Exam Eye Exam: EOMI, Normal appearance, PERRL Pupil Exam: NORMAL ACCOMODATION, PERRL - ENT Exam ENT Exam: Mucous Membranes Moist, Normal Exam - Neck Exam Neck Exam: Full ROM, Normal Inspection. absent: Lymphadenopathy - Respiratory Exam Respiratory Exam: Decreased Breath Sounds - Cardiovascular Exam Cardiovascular Exam: REGULAR RHYTHM, +S1, +S2 - GI/Abdominal Exam GI & Abdominal Exam: Soft, Diminished Bowel Sounds - Rectal Exam Rectal Exam: Deferred
--- NOTE | 2018-02-13 16:06 | CARD ---
APPROVED REPORT Date of service: 02/13/2018 EXAM: Two-dimensional and M-mode echocardiogram with Doppler and color Doppler. Other Information Quality : GoodRhythm : INDICATION EVALUATION OF LV FUNCTION 2D DIMENSIONS IVSd1.2 (0.7-1.1cm)Aortic Root (2D)2.9 (2.0-3.7cm) LVDd3.9 (3.9-5.9cm)LVOT Diameter1.9 (1.8-2.4cm) PWd1.2 (0.7-1.1cm)LVDs2.9 (2.5-4.0cm) FS (%) 25.7 %LVEF (%)51.1 (>50%) M-Mode DIMENSIONS Left Atrium (MM)4.23 (2.5-4.0cm)Aortic Root3.58 (2.2-3.7cm) Aortic Cusp Exc.1.72 (1.5-2.0cm) Mitral Valve MV E Dzvyjzqn109.5cm/sMV A Ligumkmh015.8cm/sE/A ratio1.0 TDI E/Lateral E'0.0E/Medial E'0.0 Tricuspid Valve TR Peak Sjgdwgmt473cw/sTR Peak Gr.[id number] LEFT VENTRICLE The left ventricle is normal size. There is normal left ventricular wall thickness. The left ventricular function is normal. The left ventricular ejection fraction is within the normal range. There is normal LV segmental wall motion. The left ventricular diastolic function is normal. RIGHT VENTRICLE The right ventricle is normal size. ATRIA The left atrium is mildly dilated. The right atrium size is normal. AORTIC VALVE The aortic valve is normal in structure. MITRAL VALVE Mitral regurgitation is mild. TRICUSPID VALVE There is mild tricuspid regurgitation. <Conclusion> Normal LV systolic function. Borderline dilated LA. Mild MR. Mild TR.
[2018-02-13 16:54] LABS: CK-MB 0.57 ng/mL (0.0-3.38)
[2018-02-13] MEDS: (Novolog) Insulin Aspart, Recombinant 100 u/ml 10 ml vial SC SCH ×2 (16:59→22:00)
[2018-02-13] MEDS ORDERED: Aritificial Tears (15ml) OU PRN (19:46)
[2018-02-14] MEDS: DOPamine 400mg/250ml D5W 400 MG/250 ML BAG IV PRN ×3 (04:25→22:35)
[2018-02-14 06:15] LABS: BASO # 0.1 K/uL (0.0-0.2); BASO % 0.9 % (0.0-2.0); EOS # 0.1 K/uL (0.0-0.7); EOS % 1.9 % (0.0-4.0); HEMOGLOBIN 13.4 g/dL (12.0-18.0); LYMPH % 26.3 % (20.0-40.0); MEAN CELL VOLUME 94.4 fL (80.0-94.0); MEAN CORPUSCULAR HEMOGLOBIN 32.1 pg (27.0-31.0); MONO # 0.4 K/uL (0.0-0.8); MONO % 5.9 % (0.0-10.0); NEUT # 4.9 K/uL (1.8-7.0); RBC 4.18 Mil/uL (4.40-5.90); RED CELL DISTRIBUTION WIDTH 12.9 % (11.5-14.5); WHITE BLOOD COUNT 7.6 K/uL (4.8-10.8)
[2018-02-14 06:39] LABS: ALB/GLOB RATIO 1.2 (1.0-2.1); ALBUMIN 4.1 g/dL (3.5-5.0); ALT/SGPT 40 U/L (21-72); AST/SGOT 20 U/L (17-59); BLOOD UREA NITROGEN 11 mg/dL (9-20); CALCIUM 9.4 mg/dl (8.6-10.4); GFR AFRICAN-AMERICAN > 60; GFR NON-AFRICAN AMERICAN > 60
[2018-02-14] MEDS: (Novolog) Insulin Aspart, Recombinant 100 u/ml 10 ml vial SC SCH ×4 (07:53→22:03)
[2018-02-14] MEDS: Sodium Chloride 0.9% 1,000 ML IV SCH ×2 (09:18→21:58)
[2018-02-14] MEDS ORDERED: Pneumococcal 23-Valent Vaccine IM ONE (10:00)
--- NOTE | 2018-02-14 13:51 | CP.CCUPN ---
CCU Subjective - Physician Review Events Since Last Encounter (Free Text): 02/14/18 13:36 no complaints. CCU Objective - Vital Signs / Intake & Output Vital Signs (Last 4 hours): Vital Signs Pulse Resp BP Pulse Ox 02/14/18 13:25 40 L 18 143/68 97 02/14/18 11:01 55 L 20 150/66 97 02/14/18 11:00 58 L 16 98 02/14/18 10:01 67 13 137/36 L 97 02/14/18 10:00 60 15 98 Intake and Output (Last 8hrs): Intake & Output 02/13/18 02/14/18 02/14/18 22:59 06:59 14:59 Intake Total 1778.8 1198.8 1068.0 Output Total 400 1400 Balance 1378.8 -201.2 1068.0 Weight 163 lb Intake: IV 250 250 250 Intake, IV Amount 1288.8 828.8 518.0 Right 835 Right Antecubital 225 600 375 Right Antecubital Y-Port 228.8 228.8 143.0 Oral 240 120 300 Output: Urine 400 1400 Urine, Voided 400 1400 Other: # Voids Urine, Voided 1 1 - Physical Exam Head: Positive for: Atraumatic, Normocephalic Pupils: Positive for: PERRL Extroacular Muscles: Positive for: EOMI Conjunctiva: Positive for: Normal Mouth: Positive for: Moist Mucous Membranes Neck: Positive for: Normal Range of Motion Respiratory/Chest: Positive for: Clear to Auscultation, Good Air Exchange Cardiovascular: Positive for: Normal S1, S2, Tachycardic Abdomen: Positive for: Normal Bowel Sounds. Negative for: Tenderness, Distention Upper Extremity: Positive for: Normal Inspection Lower Extremity: Positive for: Normal Inspection Neurological: Positive for: GCS=15, CN II-XII Intact Psychiatric: Positive for: Alert, Oriented x 3 - Medications Active Medications: Active Medications Generic Name Dose Route Start Last Admin Trade Name Freq PRN Reason Stop Dose Admin Acetaminophen 650 mg 02/13/18 21:04 02/13/18 21:15 Tylenol 325mg Tab PO 650 mg Q6 PRN Administration Headache Artificial Tears 0.1 ml 02/13/18 19:46 02/13/18 21:10 Artificial Tears OU 1 drop Q8H PRN Administration Dry eyes Aspirin 81 mg 02/13/18 10:00 02/14/18 09:19 Aspirin Chewable PO 81 mg DAILY ROSALIE Administration Atropine Sulfate 0.5 mg 02/13/18 15:00 Atropine IVP PRN PRN Symptomatic Bradycardia Clopidogrel Bisulfate 75 mg 02/14/18 10:00 02/14/18 09:19 Plavix PO 75 mg DAILY ROSALIE Administration Dextrose 0 ml 02/13/18 14:30 Dextrose 50% Inj IV STAT PRN Hypoglycemia Protocol Protocol Dextrose 0 gm 02/13/18 14:30 Glutose 15 PO ONCE PRN Hypoglycemia Protocol Protocol Famotidine 20 mg 02/13/18 10:00 02/14/18 09:19 Pepcid PO 20 mg DAILY ROSALIE Administration Glucagon 0 mg 02/13/18 14:30 Glucagen Diagnostic Kit IM STAT PRN Hypoglycemia Protocol Protocol Heparin Sodium (Porcine) 5,000 units 02/12/18 22:00 02/14/18 13:24 Heparin SC 5,000 units Q8 ROSALIE Administration Sodium Chloride 1,000 mls @ 75 mls/hr 02/13/18 05:15 02/14/18 09:18 Sodium Chloride 0.9% IV 75 mls/hr .[id number] ROSALIE Administration Dopamine HCl/Dextrose 400 mg in 250 mls @ 5.715 mls/hr 02/13/18 05:49 13:25 Dopamine 400mg/250ml D5w IV 10 mcg/kg/min .Q24H PRN 28.577 mls/hr TITRATE PER MD ORDER Administration Protocol 2 MCG/KG/MIN Dextrose 1,000 mls @ 0 mls/hr 02/13/18 14:30 Dextrose 5% In Water 1000 Ml IV .Q0M PRN Hypoglycemia Protocol Protocol Per Protocol Insulin Aspart 0 unit 02/13/18 16:30 02/14/18 11:53 Novolog SC 3 units ACHS ROSALIE Administration Protocol Pneumococcal Polyvalent Vaccine 0.5 ml 02/17/18 12:00 Pneumovax 23 Vaccine IM 02/17/18 12:01 .ONCE ONE Rosuvastatin Calcium 5 mg 02/12/18 22:00 02/13/18 21:10 Crestor PO 5 mg HS ROSALIE Administration - Patient Studies Lab Studies: Microbiology Studies 02/12/18 20:46 MRSA Culture (Admit) - Final Nose MRSA NOT DETECTED Lab Studies 02/14/18 02/14/18 02/13/18 Range/Units 06:07 06:07 16:28 WBC 7.6 (4.8-10.8) K/uL RBC 4.18 L (4.40-5.90) Mil/uL Hgb 13.4 (12.0-18.0) g/dL Hct 39.5 (35.0-51.0) % MCV 94.4 H (80.0-94.0) fL MCH 32.1 H (27.0-31.0) pg MCHC 34.0 (33.0-37.0) g/dL RDW 12.9 (11.5-14.5) % Plt Count 186 (130-400) K/uL MPV 11.0 (7.2-11.7) fL Neut % (Auto) 65.0 (50.0-75.0) % Lymph % (Auto) 26.3 (20.0-40.0) % Coal % (Auto) 5.9 (0.0-10.0) % Eos % (Auto) 1.9 (0.0-4.0) % Baso % (Auto) 0.9 (0.0-2.0) % Neut # (Auto) 4.9 (1.8-7.0) K/uL Lymph # (Auto) 2.0 (1.0-4.3) K/uL Coal # (Auto) 0.4 (0.0-0.8) K/uL Eos # (Auto) 0.1 (0.0-0.7) K/uL Baso # (Auto) 0.1 (0.0-0.2) K/uL Sodium 142 (132-148) mmol/L Potassium 5.0 (3.6-5.2) mmol/L Chloride 105 (98-107) mmol/L Carbon Dioxide 26 (22-30) mmol/L Anion Gap 16 (10-20) BUN 11 (9-20) mg/dL Creatinine 0.8 (0.8-1.5) mg/dL Est GFR ( Amer) > 60 Est GFR (Non-Af Amer) > 60 Random Glucose 168 H (75-110) mg/dL Calcium 9.4 (8.6-10.4) mg/dl Phosphorus 3.5 (2.5-4.5) mg/dL Magnesium 1.6 (1.6-2.3) mg/dL Total Bilirubin 0.8 (0.2-1.3) mg/dL AST 20 (17-59) U/L ALT 40 (21-72) U/L Alkaline Phosphatase 69 (38-126) U/L Total Creatine Kinase 40 L (55-170) U/L CK-MB (Mass) 0.57 (0.0-3.38) ng/mL Troponin I < 0.0120 (0.00-0.120) ng/mL Total Protein 7.4 (6.3-8.3) g/dL Albumin 4.1 (3.5-5.0) g/dL Globulin 3.3 (2.2-3.9) gm/dL Albumin/Globulin Ratio 1.2 (1.0-2.1) RPR (NONREACTIVE) 02/13/18 Range/Units 06:05 WBC (4.8-10.8) K/uL RBC (4.40-5.90) Mil/uL Hgb (12.0-18.0) g/dL Hct (35.0-51.0) % MCV (80.0-94.0) fL MCH (27.0-31.0) pg MCHC (33.0-37.0) g/dL RDW (11.5-14.5) % Plt Count (130-400) K/uL MPV (7.2-11.7) fL Neut % (Auto) (50.0-75.0) % Lymph % (Auto) (20.0-40.0) % Coal % (Auto) (0.0-10.0) % Eos % (Auto) (0.0-4.0) % Baso % (Auto) (0.0-2.0) % Neut # (Auto) (1.8-7.0) K/uL Lymph # (Auto) (1.0-4.3) K/uL Coal # (Auto) (0.0-0.8) K/uL Eos # (Auto) (0.0-0.7) K/uL Baso # (Auto) (0.0-0.2) K/uL Sodium (132-148) mmol/L Potassium (3.6-5.2) mmol/L Chloride (98-107) mmol/L Carbon Dioxide (22-30) mmol/L Anion Gap (10-20) BUN (9-20) mg/dL Creatinine (0.8-1.5) mg/dL Est GFR ( Amer) Est GFR (Non-Af Amer) Random Glucose (75-110) mg/dL Calcium (8.6-10.4) mg/dl Phosphorus (2.5-4.5) mg/dL Magnesium (1.6-2.3) mg/dL Total Bilirubin (0.2-1.3) mg/dL AST (17-59) U/L ALT (21-72) U/L Alkaline Phosphatase (38-126) U/L Total Creatine Kinase (55-170) U/L CK-MB (Mass) (0.0-3.38) ng/mL Troponin I (0.00-0.120) ng/mL Total Protein (6.3-8.3) g/dL Albumin (3.5-5.0) g/dL Globulin (2.2-3.9) gm/dL Albumin/Globulin Ratio (1.0-2.1) RPR Nonreactive (NONREACTIVE) Laboratory Results - last 24 hr 02/13/18 02/13/18 02/14/18 06:05 16:28 06:07 WBC 7.6 RBC 4.18 L Hgb 13.4 Hct 39.5 MCV 94.4 H MCH 32.1 H MCHC 34.0 RDW 12.9 Plt Count 186 MPV 11.0 Neut % (Auto) 65.0 Lymph % (Auto) 26.3 [place] % (Auto) 5.9 Eos % (Auto) 1.9 Baso % (Auto) 0.9 Neut # (Auto) 4.9 Lymph # (Auto) 2.0 [place] # (Auto) 0.4 Eos # (Auto) 0.1 Baso # (Auto) 0.1 Sodium Potassium Chloride Carbon Dioxide Anion Gap BUN Creatinine Est GFR ( Amer) Est GFR (Non-Af Amer) Random Glucose Calcium Phosphorus Magnesium Total Bilirubin AST ALT Alkaline Phosphatase Total Creatine Kinase 40 L CK-MB (Mass) 0.57 Troponin I < 0.0120 Total Protein Albumin Globulin Albumin/Globulin Ratio RPR Nonreactive 02/14/18 06:07 WBC RBC Hgb Hct MCV MCH MCHC RDW Plt Count MPV Neut % (Auto) Lymph % (Auto) [place] % (Auto) Eos % (Auto) Baso % (Auto) Neut # (Auto) Lymph # (Auto) [place] # (Auto) Eos # (Auto) Baso # (Auto) Sodium 142 Potassium 5.0 Chloride 105 Carbon Dioxide 26 Anion Gap 16 BUN 11 Creatinine 0.8 Est GFR ( Amer) > 60 Est GFR (Non-Af Amer) > 60 Random Glucose 168 H Calcium 9.4 Phosphorus 3.5 Magnesium 1.6 Total Bilirubin 0.8 AST 20 ALT 40 Alkaline Phosphatase 69 Total Creatine Kinase CK-MB (Mass) Troponin I Total Protein 7.4 Albumin 4.1 Globulin 3.3 Albumin/Globulin Ratio 1.2 RPR EKG/Cardiology Studies: Cardiology / EKG Studies 02/13/18 16:24 EKG [ELECTROCARDIOGRAM] Stat Comment: Mode Of Transportation: Reason For Exam: SYMPTOMATIC BRADYCARDIA Fingerstick Blood Sugar Results: 245 Review of Systems - Review of Systems All systems: reviewed and no additional remarkable complaints except (no complaints) Critical Care Progress Note - Ventilator Checklist Head of Bed 30 Degrees: Yes Daily Sedation Vacation: Yes Daily Assessment of Readiness to Wean: Yes Daily Spontaneous Breathing Trial: Yes PUD Prophalyxis: Yes DVT Prophylaxis: Yes - Nutrition Nutrition: Nutrition Category Date Time Status Diabetic [Consistent Carbohydrate] [DIET] Diets 02/12/18 Dinner Active Assessment/Plan (1) Heart block AV third degree Assessment and plan: 62 y/o male with pmx of DM, HTN presents to [facility] with c/o dizziness and nausea. Patient was noted to be in 3rd degree block. Neuro: alert and oriented x 3 Pulm: no acute issues, breathing spontaneously on room air. CV: On dopamine to counter bradycardia from 3rd degree AV block, permanent PM placement planned. Cardio - Dr. Hunt Renal: no acute issues, urine output wnl GI: diabetic diet ID: no acute issues GI proph - not currently indicated DVT proph - heparin sq Code status - full code Critical Care Time spent 35 minutes Multi-disciplinary rounds were performed with house staff, nursing, speech therapy, respiratory therapy, pharmacy and nutrition with integrated input from the primary team/attending and other consulting services. The documented time is cumulative and includes review of patient data/exams/labs/chart review and examination of the patient on rounds and throughout the day; time is exclusive of any procedures or teaching time. Current Visit: Yes Status: Acute
--- NOTE | 2018-02-14 17:42 | CP.PCM.PN ---
Subjective - Date & Time of Evaluation Date of Evaluation: 02/14/18 Time of Evaluation: 10:45 - Subjective Subjective: clinically same Objective - Vital Signs/Intake and Output Vital Signs (last 24 hours): Temp Pulse Resp BP Pulse Ox 98.4 F 61 11 L 156/74 H 97 02/14/18 16:00 02/14/18 17:00 02/14/18 17:00 02/14/18 17:00 02/14/18 17:00 Intake and Output: 02/14/18 02/14/18 06:59 18:59 Intake Total 1973.2 1989.6 Output Total 1800 550 Balance 173.2 1439.6 - Medications Medications: Current Medications Acetaminophen (Tylenol 325mg Tab) 650 mg PO Q6 PRN PRN Reason: Headache Last Admin: 02/13/18 21:15 Dose: 650 mg Artificial Tears (Artificial Tears) 0.1 ml OU Q8H PRN PRN Reason: Dry eyes Last Admin: 02/13/18 21:10 Dose: 1 drop Aspirin (Aspirin Chewable) 81 mg PO DAILY [facility] Last Admin: 02/14/18 09:19 Dose: 81 mg Atropine Sulfate (Atropine) 0.5 mg IVP PRN PRN PRN Reason: Symptomatic Bradycardia Clopidogrel Bisulfate (Plavix) 75 mg PO DAILY [facility] Last Admin: 02/14/18 09:19 Dose: 75 mg Dextrose (Dextrose 50% Inj) 0 ml IV STAT PRN; Protocol PRN Reason: Hypoglycemia Protocol Dextrose (Glutose 15) 0 gm PO ONCE PRN; Protocol PRN Reason: Hypoglycemia Protocol Famotidine (Pepcid) 20 mg PO DAILY [facility] Last Admin: 02/14/18 09:19 Dose: 20 mg Glucagon (Glucagen Diagnostic Kit) 0 mg IM STAT PRN; Protocol PRN Reason: Hypoglycemia Protocol Heparin Sodium (Porcine) (Heparin) 5,000 units SC Q8 [facility] Last Admin: 02/14/18 13:24 Dose: 5,000 units Sodium Chloride (Sodium Chloride 0.9%) 1,000 mls @ 75 mls/hr IV .[id number] [facility] Last Admin: 02/14/18 09:18 Dose: 75 mls/hr Dopamine HCl/Dextrose (Dopamine 400mg/250ml D5w) 400 mg in 250 mls @ 5.715 mls/ hr IV .Q24H PRN; Protocol; 2 MCG/KG/MIN PRN Reason: TITRATE PER MD ORDER Last Admin: 02/14/18 13:25 Dose: 10 mcg/kg/min, 28.577 mls/hr Dextrose (Dextrose 5% In Water 1000 Ml) 1,000 mls @ 0 mls/hr IV .Q0M PRN; Protocol; Per Protocol PRN Reason: Hypoglycemia Protocol Insulin Aspart (Novolog) 0 unit SC ACHS ROSALIE PRN Reason: Protocol Last Admin: 02/14/18 16:59 Dose: 3 units Pneumococcal Polyvalent Vaccine (Pneumovax 23 Vaccine) 0.5 ml IM .ONCE ONE Stop: 02/17/18 12:01 Rosuvastatin Calcium (Crestor) 5 mg PO HS ROSALIE Last Admin: 02/13/18 21:10 Dose: 5 mg - Labs Labs: 02/14/18 06:07 02/14/18 06:07 PT 12.9 SECONDS (9.7-12.2) H 02/13/18 06:05 INR 1.2 02/13/18 06:05 APTT 28 SECONDS (21-34) 02/13/18 06:05 - Constitutional Appears: Well - Head Exam Head Exam: ATRAUMATIC, NORMAL INSPECTION, NORMOCEPHALIC - Eye Exam Eye Exam: EOMI, Normal appearance, PERRL Pupil Exam: NORMAL ACCOMODATION, PERRL - ENT Exam ENT Exam: Mucous Membranes Moist, Normal Exam - Neck Exam Neck Exam: Full ROM, Normal Inspection. absent: Lymphadenopathy - Respiratory Exam Respiratory Exam: Decreased Breath Sounds - Cardiovascular Exam Cardiovascular Exam: REGULAR RHYTHM, +S1, +S2 - GI/Abdominal Exam GI & Abdominal Exam: Soft, Diminished Bowel Sounds - Rectal Exam Rectal Exam: Deferred
[2018-02-15 04:05] LABS: BASO # 0.1 K/uL (0.0-0.2); EOS # 0.2 K/uL (0.0-0.7); EOS % 2.5 % (0.0-4.0); MEAN CELL VOLUME 92.6 fL (80.0-94.0); MEAN CORPUSCULAR HEMOGLOBIN 31.5 pg (27.0-31.0); MEAN PLATELET VOLUME 9.7 fL (7.2-11.7); MONO # 0.4 K/uL (0.0-0.8); MONO % 5.8 % (0.0-10.0); NEUT # 4.7 K/uL (1.8-7.0); NEUT % 63.7 % (50.0-75.0); RBC 4.45 Mil/uL (4.40-5.90); RED CELL DISTRIBUTION WIDTH 12.6 % (11.5-14.5); WHITE BLOOD COUNT 7.5 K/uL (4.8-10.8)
[2018-02-15 04:12] LABS: INR 1.2; PROTHROMBIN TIME 12.9 SECONDS (9.7-12.2)
[2018-02-15 04:16] LABS: ALB/GLOB RATIO 1.2 (1.0-2.1); ALBUMIN 4.2 g/dL (3.5-5.0); ALT/SGPT 34 U/L (21-72); AST/SGOT 17 U/L (17-59); BLOOD UREA NITROGEN 11 mg/dL (9-20); CALCIUM 9.6 mg/dl (8.6-10.4); GFR AFRICAN-AMERICAN > 60; GFR NON-AFRICAN AMERICAN > 60
[2018-02-15 04:46] VITALS: TEMP 97.8
[2018-02-15 05:16] VITALS: BP 141/69; PULSE 56; RESP 21; O2SAT 99
--- NOTE | 2018-02-15 10:26 | CP.PCM.CON ---
History of Present Illness - History of Present Illness History of Present Illness: Cardiology consultation for Dr Hunt HPI: 62 y/o male with pmh of HTN, DM presents with lightheadedness/dizziness for 1 day. Symptoms worsens by exertion and standing. No h/o falls. Patient denied cp , palpitations, leg edema. Admits to SOB on exertion. In ER EKrd degree heart block. given atropine 0.5 mg and dopamine IVP. Echo: normal systolic function Review of Systems - Constitutional Constitutional: As Per HPI - EENT Eyes: As Per HPI Nose/Mouth/Throat: As Per HPI - Cardiovascular Cardiovascular: Dyspnea on Exertion, Lightheadedness, Slow Heart Rate. absent: Chest Pain, Chest Pain at Rest, Edema, Irregular Heart Rhythm, Pain Radiating to Arm/Neck/Jaw, Leg Edema, Orthopnea, Paroxysmal Nocturnal Dyspnea - Respiratory Respiratory: absent: Cough, Wheezing - Gastrointestinal Gastrointestinal: Nausea. absent: Abdominal Pain, Cramping, Vomiting - Genitourinary Genitourinary: As Per HPI - Reproductive: Male Reproductive:Male: As Per HPI - Musculoskeletal Musculoskeletal: As Per HPI - Integumentary Integumentary: As Per HPI - Neurological Neurological: Dizziness. absent: Numbness, Focal Weakness - Psychiatric Psychiatric: As Per HPI - Endocrine Endocrine: As Per HPI - Hematologic/Lymphatic Hematologic: As Per HPI Past Patient History - Infectious Disease Hx of Infectious Diseases: None - Past Medical History & Family History Past Medical History?: Yes - Past Social History Smoking Status: Never Smoked - CARDIAC Hx Cardiac Disorders: Yes Hx Hypertension: Yes - PULMONARY Hx Respiratory Disorders: No - NEUROLOGICAL Hx Neurological Disorder: No - HEENT Hx HEENT Problems: No - RENAL Hx Chronic Kidney Disease: No - ENDOCRINE/METABOLIC Hx Endocrine Disorders: Yes Hx Diabetes Mellitus Type 1: Yes - HEMATOLOGICAL/ONCOLOGICAL Hx Blood Disorders: No - INTEGUMENTARY Hx Dermatological Problems: No - MUSCULOSKELETAL/RHEUMATOLOGICAL Hx Musculoskeletal Disorders: No - GASTROINTESTINAL Hx Gastrointestinal Disorders: No - GENITOURINARY/GYNECOLOGICAL Hx Genitourinary Disorders: No - PSYCHIATRIC Hx Psychophysiologic Disorder: No Hx Substance Use: No - SURGICAL HISTORY Hx Surgeries: Yes Hx Tonsillectomy: Yes (at 18 years old) - ANESTHESIA Hx Anesthesia: Yes Hx Anesthesia Reactions: No Hx Malignant Hyperthermia: No Has any member of the family had a problem w/ anesthesia?: No Meds Allergies/Adverse Reactions: Allergies Allergy/AdvReac Type Severity Reaction Status Date / Time Penicillins Allergy Verified 02/12/18 17:05 - Medications Medications: Current Medications Acetaminophen (Tylenol 325mg Tab) 650 mg PO Q6 PRN PRN Reason: Headache Last Admin: 02/13/18 21:15 Dose: 650 mg Artificial Tears (Artificial Tears) 0.1 ml OU Q8H PRN PRN Reason: Dry eyes Last Admin: 02/13/18 21:10 Dose: 1 drop Aspirin (Aspirin Chewable) 81 mg PO DAILY [facility] Last Admin: 02/14/18 09:19 Dose: 81 mg Atropine Sulfate (Atropine) 0.5 mg IVP PRN PRN PRN Reason: Symptomatic Bradycardia Clopidogrel Bisulfate (Plavix) 75 mg PO DAILY [facility] Last Admin: 02/14/18 09:19 Dose: 75 mg Dextrose (Dextrose 50% Inj) 0 ml IV STAT PRN; Protocol PRN Reason: Hypoglycemia Protocol Dextrose (Glutose 15) 0 gm PO ONCE PRN; Protocol PRN Reason: Hypoglycemia Protocol Famotidine (Pepcid) 20 mg PO DAILY [facility] Last Admin: 02/14/18 09:19 Dose: 20 mg Glucagon (Glucagen Diagnostic Kit) 0 mg IM STAT PRN; Protocol PRN Reason: Hypoglycemia Protocol Heparin Sodium (Porcine) (Heparin) 5,000 units SC Q8 [facility] Last Admin: 02/15/18 07:10 Dose: Not Given Sodium Chloride (Sodium Chloride 0.9%) 1,000 mls @ 75 mls/hr IV .[id number] [facility] Last Admin: 02/14/18 21:58 Dose: 75 mls/hr Dopamine HCl/Dextrose (Dopamine 400mg/250ml D5w) 400 mg in 250 mls @ 5.715 mls/ hr IV .Q24H PRN; Protocol; 2 MCG/KG/MIN PRN Reason: TITRATE PER MD ORDER Last Admin: 02/14/18 22:35 Dose: 10 mcg/kg/min, 28.577 mls/hr Dextrose (Dextrose 5% In Water 1000 Ml) 1,000 mls @ 0 mls/hr IV .Q0M PRN; Protocol; Per Protocol PRN Reason: Hypoglycemia Protocol Insulin Aspart (Novolog) 0 unit SC ACHS [facility] PRN Reason: Protocol Last Admin: 02/14/18 22:03 Dose: Not Given Pneumococcal Polyvalent Vaccine (Pneumovax 23 Vaccine) 0.5 ml IM .ONCE ONE Stop: 02/17/18 12:01 Rosuvastatin Calcium (Crestor) 5 mg PO HS [facility] Last Admin: 02/14/18 21:57 Dose: 5 mg Physical Exam - Constitutional Appears: Well, No Acute Distress - Head Exam Head Exam: ATRAUMATIC, NORMAL INSPECTION, NORMOCEPHALIC - Eye Exam Eye Exam: EOMI, Normal appearance, PERRL Pupil Exam: PERRL - ENT Exam ENT Exam: Mucous Membranes Moist, Normal Exam - Neck Exam Neck exam: Positive for: Normal Inspection - Respiratory Exam Respiratory Exam: Clear to Auscultation Bilateral, NORMAL BREATHING PATTERN - Cardiovascular Exam Cardiovascular Exam: Bradycardia, REGULAR RHYTHM, +S1, +S2 - GI/Abdominal Exam GI & Abdominal Exam: Normal Bowel Sounds, Soft. absent: Tenderness - Rectal Exam Rectal Exam: Deferred - Extremities Exam Extremities exam: Positive for: normal inspection - Back Exam Back exam: NORMAL INSPECTION - Neurological Exam Neurological exam: Alert, CN II-XII Intact, Normal Gait, Oriented x3, Reflexes Normal - Psychiatric Exam Psychiatric exam: Normal Affect, Normal Mood - Skin Skin Exam: Dry, Intact, Normal Color, Warm Results - Vital Signs Recent Vital Signs: Last Vital Signs Temp 97.8 F 02/15/18 04:00 Pulse 56 L 02/15/18 05:01 Resp 21 02/15/18 05:01 BP 141/69 02/15/18 05:01 Pulse Ox 99 02/15/18 05:01 - Labs Result Diagrams: 02/15/18 04:02 02/15/18 04:02 Labs: Laboratory Results - last 24 hr 02/14/18 02/15/18 02/15/18 15:50 04:02 04:02 WBC 7.5 RBC 4.45 Hgb 14.0 Hct 41.2 MCV 92.6 MCH 31.5 H MCHC 34.0 RDW 12.6 Plt Count 188 MPV 9.7 Neut % (Auto) 63.7 Lymph % (Auto) 27.0 [place] % (Auto) 5.8 Eos % (Auto) 2.5 Baso % (Auto) 1.0 Neut # (Auto) 4.7 Lymph # (Auto) 2.0 [place] # (Auto) 0.4 Eos # (Auto) 0.2 Baso # (Auto) 0.1 PT 12.9 H INR 1.2 APTT 42 H D Sodium Potassium Chloride Carbon Dioxide Anion Gap BUN Creatinine Est GFR ( Amer) Est GFR (Non-Af Amer) Random Glucose Calcium Phosphorus Magnesium Total Bilirubin AST ALT Alkaline Phosphatase Total Creatine Kinase 54 L CK-MB (Mass) 0.60 Troponin I < 0.0120 Total Protein Albumin Globulin Albumin/Globulin Ratio 02/15/18 04:02 WBC RBC Hgb Hct MCV MCH MCHC RDW Plt Count MPV Neut % (Auto) Lymph % (Auto) [place] % (Auto) Eos % (Auto) Baso % (Auto) Neut # (Auto) Lymph # (Auto) [place] # (Auto) Eos # (Auto) Baso # (Auto) PT INR APTT Sodium 144 Potassium 4.2 Chloride 103 Carbon Dioxide 28 Anion Gap 18 BUN 11 Creatinine 0.8 Est GFR ( Amer) > 60 Est GFR (Non-Af Amer) > 60 Random Glucose 172 H Calcium 9.6 Phosphorus 3.6 Magnesium 1.6 Total Bilirubin 0.7 AST 17 ALT 34 Alkaline Phosphatase 69 Total Creatine Kinase CK-MB (Mass) Troponin I Total Protein 7.6 Albumin 4.2 Globulin 3.4 Albumin/Globulin Ratio 1.2 - EKG Data EKG Interpreted by: Other EKG shows normal: Sinus rhythm Rate: Bradycardia Assessment & Plan (1) Heart block AV third degree Assessment and Plan: 62 y/o male with pmh of HTN, DM presents with lightheadedness/dizziness. EKG shows 3rd degree heart block. Refractory to Atropine, Dopamine given. -EKG: sinus bradycardia @46, 2:1 AV block, RBBB, LAFB -Echo: normal systolic function, dilated LA, mild TR/MR -permanent pacemaker placement planned Status: Acute
--- NOTE | 2018-02-15 13:09 | CP.CCUPN ---
CCU Subjective - Physician Review Subjective (Free Text): 02/15/18 13:03 62 yo M w/ PMHx of DM and HTN presented to ED w/ diziness and nausea. Admitted to ICU after pt was noted to be in 3rd degree HB CCU Objective - Vital Signs / Intake & Output Intake and Output (Last 8hrs): Intake & Output 02/14/18 02/15/18 02/15/18 22:59 06:59 14:59 Intake Total 1478.8 725.2 Output Total 1175 1200 Balance 303.8 -474.8 Intake: IV 250 Intake, IV Amount 828.8 725.2 Right Antecubital 600 525 Right Antecubital Y-Port 228.8 200.2 Oral 400 Output: Urine 1175 1200 Urine, Voided 1175 1200 Other: # Voids Urine, Voided 0 0 # Bowel Movements 0 0 - Physical Exam Head: Positive for: Atraumatic, Normocephalic Pupils: Positive for: PERRL Extroacular Muscles: Positive for: EOMI Conjunctiva: Positive for: Normal Mouth: Positive for: Moist Mucous Membranes Neck: Positive for: Normal Range of Motion Respiratory/Chest: Positive for: Clear to Auscultation, Good Air Exchange Cardiovascular: Positive for: Normal S1, S2, Tachycardic Abdomen: Positive for: Normal Bowel Sounds. Negative for: Tenderness, Distention Upper Extremity: Positive for: Normal Inspection Lower Extremity: Positive for: Normal Inspection Neurological: Positive for: GCS=15, CN II-XII Intact Psychiatric: Positive for: Alert, Oriented x 3 - Medications Active Medications: Active Medications Generic Name Dose Route Start Last Admin Trade Name Freq PRN Reason Stop Dose Admin Acetaminophen 650 mg 02/13/18 21:04 02/13/18 21:15 Tylenol 325mg Tab PO 650 mg Q6 PRN Administration Headache Artificial Tears 0.1 ml 02/13/18 19:46 02/13/18 21:10 Artificial Tears OU 1 drop Q8H PRN Administration Dry eyes Aspirin 81 mg 02/13/18 10:00 02/14/18 09:19 Aspirin Chewable PO 81 mg DAILY ROSALIE Administration Atropine Sulfate 0.5 mg 02/13/18 15:00 Atropine IVP PRN PRN Symptomatic Bradycardia Clopidogrel Bisulfate 75 mg 02/14/18 10:00 02/14/18 09:19 Plavix PO 75 mg DAILY ROSALIE Administration Dextrose 0 ml 02/13/18 14:30 Dextrose 50% Inj IV STAT PRN Hypoglycemia Protocol Protocol Dextrose 0 gm 02/13/18 14:30 Glutose 15 PO ONCE PRN Hypoglycemia Protocol Protocol Famotidine 20 mg 02/13/18 10:00 02/14/18 09:19 Pepcid PO 20 mg DAILY ROSALIE Administration Glucagon 0 mg 02/13/18 14:30 Glucagen Diagnostic Kit IM STAT PRN Hypoglycemia Protocol Protocol Heparin Sodium (Porcine) 5,000 units 02/12/18 22:00 02/15/18 07:10 Heparin SC Not Given Q8 ROSALIE Sodium Chloride 1,000 mls @ 75 mls/hr 02/13/18 05:15 02/14/18 21:58 Sodium Chloride 0.9% IV 75 mls/hr .[id number] ROSALIE Administration Dopamine HCl/Dextrose 400 mg in 250 mls @ 5.715 mls/hr 02/13/18 05:49 22:35 Dopamine 400mg/250ml D5w IV 10 mcg/kg/min .Q24H PRN 28.577 mls/hr TITRATE PER MD ORDER Administration Protocol 2 MCG/KG/MIN Dextrose 1,000 mls @ 0 mls/hr 02/13/18 14:30 Dextrose 5% In Water 1000 Ml IV .Q0M PRN Hypoglycemia Protocol Protocol Per Protocol Insulin Aspart 0 unit 02/13/18 16:30 02/14/18 22:03 Novolog SC Not Given ACHS [facility] Protocol Pneumococcal Polyvalent Vaccine 0.5 ml 02/17/18 12:00 Pneumovax 23 Vaccine IM 02/17/18 12:01 .ONCE ONE Rosuvastatin Calcium 5 mg 02/12/18 22:00 02/14/18 21:57 Crestor PO 5 mg HS ROSALIE Administration - Patient Studies Lab Studies: Lab Studies 02/15/18 02/15/18 02/15/18 Range/Units 04:02 04:02 04:02 WBC 7.5 (4.8-10.8) K/uL RBC 4.45 (4.40-5.90) Mil/uL Hgb 14.0 (12.0-18.0) g/dL Hct 41.2 (35.0-51.0) % MCV 92.6 (80.0-94.0) fL MCH 31.5 H (27.0-31.0) pg MCHC 34.0 (33.0-37.0) g/dL RDW 12.6 (11.5-14.5) % Plt Count 188 (130-400) K/uL MPV 9.7 (7.2-11.7) fL Neut % (Auto) 63.7 (50.0-75.0) % Lymph % (Auto) 27.0 (20.0-40.0) % Hubbard % (Auto) 5.8 (0.0-10.0) % Eos % (Auto) 2.5 (0.0-4.0) % Baso % (Auto) 1.0 (0.0-2.0) % Neut # (Auto) 4.7 (1.8-7.0) K/uL Lymph # (Auto) 2.0 (1.0-4.3) K/uL Hubbard # (Auto) 0.4 (0.0-0.8) K/uL Eos # (Auto) 0.2 (0.0-0.7) K/uL Baso # (Auto) 0.1 (0.0-0.2) K/uL PT 12.9 H (9.7-12.2) SECONDS INR 1.2 APTT 42 H D (21-34) SECONDS Sodium 144 (132-148) mmol/L Potassium 4.2 (3.6-5.2) mmol/L Chloride 103 (98-107) mmol/L Carbon Dioxide 28 (22-30) mmol/L Anion Gap 18 (10-20) BUN 11 (9-20) mg/dL Creatinine 0.8 (0.8-1.5) mg/dL Est GFR ( Amer) > 60 Est GFR (Non-Af Amer) > 60 POC Glucose (mg/dL) (65-110) mg/dL Random Glucose 172 H (75-110) mg/dL Hemoglobin A1c (4.2-6.5) % Calcium 9.6 (8.6-10.4) mg/dl Phosphorus 3.6 (2.5-4.5) mg/dL Magnesium 1.6 (1.6-2.3) mg/dL Total Bilirubin 0.7 (0.2-1.3) mg/dL AST 17 (17-59) U/L ALT 34 (21-72) U/L Alkaline Phosphatase 69 (38-126) U/L Total Creatine Kinase (55-170) U/L CK-MB (Mass) (0.0-3.38) ng/mL Troponin I (0.00-0.120) ng/mL Total Protein 7.6 (6.3-8.3) g/dL Albumin 4.2 (3.5-5.0) g/dL Globulin 3.4 (2.2-3.9) gm/dL Albumin/Globulin Ratio 1.2 (1.0-2.1) 02/14/18 02/14/18 02/14/18 Range/Units 21:15 15:50 15:47 WBC (4.8-10.8) K/uL RBC (4.40-5.90) Mil/uL Hgb (12.0-18.0) g/dL Hct (35.0-51.0) % MCV (80.0-94.0) fL MCH (27.0-31.0) pg MCHC (33.0-37.0) g/dL RDW (11.5-14.5) % Plt Count (130-400) K/uL MPV (7.2-11.7) fL Neut % (Auto) (50.0-75.0) % Lymph % (Auto) (20.0-40.0) % Hubbard % (Auto) (0.0-10.0) % Eos % (Auto) (0.0-4.0) % Baso % (Auto) (0.0-2.0) % Neut # (Auto) (1.8-7.0) K/uL Lymph # (Auto) (1.0-4.3) K/uL Hubbard # (Auto) (0.0-0.8) K/uL Eos # (Auto) (0.0-0.7) K/uL Baso # (Auto) (0.0-0.2) K/uL PT (9.7-12.2) SECONDS INR APTT (21-34) SECONDS Sodium (132-148) mmol/L Potassium (3.6-5.2) mmol/L Chloride (98-107) mmol/L Carbon Dioxide (22-30) mmol/L Anion Gap (10-20) BUN (9-20) mg/dL Creatinine (0.8-1.5) mg/dL Est GFR ( Amer) Est GFR (Non-Af Amer) POC Glucose (mg/dL) 164 H 216 H (65-110) mg/dL Random Glucose (75-110) mg/dL Hemoglobin A1c (4.2-6.5) % Calcium (8.6-10.4) mg/dl Phosphorus (2.5-4.5) mg/dL Magnesium (1.6-2.3) mg/dL Total Bilirubin (0.2-1.3) mg/dL AST (17-59) U/L ALT (21-72) U/L Alkaline Phosphatase (38-126) U/L Total Creatine Kinase 54 L (55-170) U/L CK-MB (Mass) 0.60 (0.0-3.38) ng/mL Troponin I < 0.0120 (0.00-0.120) ng/mL Total Protein (6.3-8.3) g/dL Albumin (3.5-5.0) g/dL Globulin (2.2-3.9) gm/dL Albumin/Globulin Ratio (1.0-2.1) 02/14/18 02/14/18 02/13/18 Range/Units 11:14 07:31 21:29 WBC (4.8-10.8) K/uL RBC (4.40-5.90) Mil/uL Hgb (12.0-18.0) g/dL Hct (35.0-51.0) % MCV (80.0-94.0) fL MCH (27.0-31.0) pg MCHC (33.0-37.0) g/dL RDW (11.5-14.5) % Plt Count (130-400) K/uL MPV (7.2-11.7) fL Neut % (Auto) (50.0-75.0) % Lymph % (Auto) (20.0-40.0) % Hubbard % (Auto) (0.0-10.0) % Eos % (Auto) (0.0-4.0) % Baso % (Auto) (0.0-2.0) % Neut # (Auto) (1.8-7.0) K/uL Lymph # (Auto) (1.0-4.3) K/uL Hubbard # (Auto) (0.0-0.8) K/uL Eos # (Auto) (0.0-0.7) K/uL Baso # (Auto) (0.0-0.2) K/uL PT (9.7-12.2) SECONDS INR APTT (21-34) SECONDS Sodium (132-148) mmol/L Potassium (3.6-5.2) mmol/L Chloride (98-107) mmol/L Carbon Dioxide (22-30) mmol/L Anion Gap (10-20) BUN (9-20) mg/dL Creatinine (0.8-1.5) mg/dL Est GFR ( Amer) Est GFR (Non-Af Amer) POC Glucose (mg/dL) 245 H 176 H 213 H (65-110) mg/dL Random Glucose (75-110) mg/dL Hemoglobin A1c (4.2-6.5) % Calcium (8.6-10.4) mg/dl Phosphorus (2.5-4.5) mg/dL Magnesium (1.6-2.3) mg/dL Total Bilirubin (0.2-1.3) mg/dL AST (17-59) U/L ALT (21-72) U/L Alkaline Phosphatase (38-126) U/L Total Creatine Kinase (55-170) U/L CK-MB (Mass) (0.0-3.38) ng/mL Troponin I (0.00-0.120) ng/mL Total Protein (6.3-8.3) g/dL Albumin (3.5-5.0) g/dL Globulin (2.2-3.9) gm/dL Albumin/Globulin Ratio (1.0-2.1) 02/13/18 02/13/18 02/13/18 Range/Units 16:51 15:42 11:52 WBC (4.8-10.8) K/uL RBC (4.40-5.90) Mil/uL Hgb (12.0-18.0) g/dL Hct (35.0-51.0) % MCV (80.0-94.0) fL MCH (27.0-31.0) pg MCHC (33.0-37.0) g/dL RDW (11.5-14.5) % Plt Count (130-400) K/uL MPV (7.2-11.7) fL Neut % (Auto) (50.0-75.0) % Lymph % (Auto) (20.0-40.0) % Hubbard % (Auto) (0.0-10.0) % Eos % (Auto) (0.0-4.0) % Baso % (Auto) (0.0-2.0) % Neut # (Auto) (1.8-7.0) K/uL Lymph # (Auto) (1.0-4.3) K/uL Hubbard # (Auto) (0.0-0.8) K/uL Eos # (Auto) (0.0-0.7) K/uL Baso # (Auto) (0.0-0.2) K/uL PT (9.7-12.2) SECONDS INR APTT (21-34) SECONDS Sodium (132-148) mmol/L Potassium (3.6-5.2) mmol/L Chloride (98-107) mmol/L Carbon Dioxide (22-30) mmol/L Anion Gap (10-20) BUN (9-20) mg/dL Creatinine (0.8-1.5) mg/dL Est GFR ( Amer) Est GFR (Non-Af Amer) POC Glucose (mg/dL) 204 H 214 H 192 H (65-110) mg/dL Random Glucose (75-110) mg/dL Hemoglobin A1c (4.2-6.5) % Calcium (8.6-10.4) mg/dl Phosphorus (2.5-4.5) mg/dL Magnesium (1.6-2.3) mg/dL Total Bilirubin (0.2-1.3) mg/dL AST (17-59) U/L ALT (21-72) U/L Alkaline Phosphatase (38-126) U/L Total Creatine Kinase (55-170) U/L CK-MB (Mass) (0.0-3.38) ng/mL Troponin I (0.00-0.120) ng/mL Total Protein (6.3-8.3) g/dL Albumin (3.5-5.0) g/dL Globulin (2.2-3.9) gm/dL Albumin/Globulin Ratio (1.0-2.1) 02/13/18 Range/Units 06:05 WBC (4.8-10.8) K/uL RBC (4.40-5.90) Mil/uL Hgb (12.0-18.0) g/dL Hct (35.0-51.0) % MCV (80.0-94.0) fL MCH (27.0-31.0) pg MCHC (33.0-37.0) g/dL RDW (11.5-14.5) % Plt Count (130-400) K/uL MPV (7.2-11.7) fL Neut % (Auto) (50.0-75.0) % Lymph % (Auto) (20.0-40.0) % Hubbard % (Auto) (0.0-10.0) % Eos % (Auto) (0.0-4.0) % Baso % (Auto) (0.0-2.0) % Neut # (Auto) (1.8-7.0) K/uL Lymph # (Auto) (1.0-4.3) K/uL Hubbard # (Auto) (0.0-0.8) K/uL Eos # (Auto) (0.0-0.7) K/uL Baso # (Auto) (0.0-0.2) K/uL PT (9.7-12.2) SECONDS INR APTT (21-34) SECONDS Sodium (132-148) mmol/L Potassium (3.6-5.2) mmol/L Chloride (98-107) mmol/L Carbon Dioxide (22-30) mmol/L Anion Gap (10-20) BUN (9-20) mg/dL Creatinine (0.8-1.5) mg/dL Est GFR ( Amer) Est GFR (Non-Af Amer) POC Glucose (mg/dL) (65-110) mg/dL Random Glucose (75-110) mg/dL Hemoglobin A1c 7.2 H (4.2-6.5) % Calcium (8.6-10.4) mg/dl Phosphorus (2.5-4.5) mg/dL Magnesium (1.6-2.3) mg/dL Total Bilirubin (0.2-1.3) mg/dL AST (17-59) U/L ALT (21-72) U/L Alkaline Phosphatase (38-126) U/L Total Creatine Kinase (55-170) U/L CK-MB (Mass) (0.0-3.38) ng/mL Troponin I (0.00-0.120) ng/mL Total Protein (6.3-8.3) g/dL Albumin (3.5-5.0) g/dL Globulin (2.2-3.9) gm/dL Albumin/Globulin Ratio (1.0-2.1) Laboratory Results - last 24 hr 02/13/18 02/13/18 02/13/18 06:05 11:52 15:42 WBC RBC Hgb Hct MCV MCH MCHC RDW Plt Count MPV Neut % (Auto) Lymph % (Auto) Hubbard % (Auto) Eos % (Auto) Baso % (Auto) Neut # (Auto) Lymph # (Auto) Hubbard # (Auto) Eos # (Auto) Baso # (Auto) PT INR APTT Sodium Potassium Chloride Carbon Dioxide Anion Gap BUN Creatinine Est GFR ( Amer) Est GFR (Non-Af Amer) POC Glucose (mg/dL) 192 H 214 H Random Glucose Hemoglobin A1c 7.2 H Calcium Phosphorus Magnesium Total Bilirubin AST ALT Alkaline Phosphatase Total Creatine Kinase CK-MB (Mass) Troponin I Total Protein Albumin Globulin Albumin/Globulin Ratio 02/13/18 02/13/18 02/14/18 16:51 21:29 07:31 WBC RBC Hgb Hct MCV MCH MCHC RDW Plt Count MPV Neut % (Auto) Lymph % (Auto) Hubbard % (Auto) Eos % (Auto) Baso % (Auto) Neut # (Auto) Lymph # (Auto) Hubbard # (Auto) Eos # (Auto) Baso # (Auto) PT INR APTT Sodium Potassium Chloride Carbon Dioxide Anion Gap BUN Creatinine Est GFR ( Amer) Est GFR (Non-Af Amer) POC Glucose (mg/dL) 204 H 213 H 176 H Random Glucose Hemoglobin A1c Calcium Phosphorus Magnesium Total Bilirubin AST ALT Alkaline Phosphatase Total Creatine Kinase CK-MB (Mass) Troponin I Total Protein Albumin Globulin Albumin/Globulin Ratio 02/14/18 02/14/18 02/14/18 11:14 15:47 15:50 WBC RBC Hgb Hct MCV MCH MCHC RDW Plt Count MPV Neut % (Auto) Lymph % (Auto) Hubbard % (Auto) Eos % (Auto) Baso % (Auto) Neut # (Auto) Lymph # (Auto) Hubbard # (Auto) Eos # (Auto) Baso # (Auto) PT INR APTT Sodium Potassium Chloride Carbon Dioxide Anion Gap BUN Creatinine Est GFR ( Amer) Est GFR (Non-Af Amer) POC Glucose (mg/dL) 245 H 216 H Random Glucose Hemoglobin A1c Calcium Phosphorus Magnesium Total Bilirubin AST ALT Alkaline Phosphatase Total Creatine Kinase 54 L CK-MB (Mass) 0.60 Troponin I < 0.0120 Total Protein Albumin Globulin Albumin/Globulin Ratio 02/14/18 02/15/18 02/15/18 21:15 04:02 04:02 WBC 7.5 RBC 4.45 Hgb 14.0 Hct 41.2 MCV 92.6 MCH 31.5 H MCHC 34.0 RDW 12.6 Plt Count 188 MPV 9.7 Neut % (Auto) 63.7 Lymph % (Auto) 27.0 Hubbard % (Auto) 5.8 Eos % (Auto) 2.5 Baso % (Auto) 1.0 Neut # (Auto) 4.7 Lymph # (Auto) 2.0 Hubbard # (Auto) 0.4 Eos # (Auto) 0.2 Baso # (Auto) 0.1 PT 12.9 H INR 1.2 APTT 42 H D Sodium Potassium Chloride Carbon Dioxide Anion Gap BUN Creatinine Est GFR ( Amer) Est GFR (Non-Af Amer) POC Glucose (mg/dL) 164 H Random Glucose Hemoglobin A1c Calcium Phosphorus Magnesium Total Bilirubin AST ALT Alkaline Phosphatase Total Creatine Kinase CK-MB (Mass) Troponin I Total Protein Albumin Globulin Albumin/Globulin Ratio 02/15/18 04:02 WBC RBC Hgb Hct MCV MCH MCHC RDW Plt Count MPV Neut % (Auto) Lymph % (Auto) Hubbard % (Auto) Eos % (Auto) Baso % (Auto) Neut # (Auto) Lymph # (Auto) Hubbard # (Auto) Eos # (Auto) Baso # (Auto) PT INR APTT Sodium 144 Potassium 4.2 Chloride 103 Carbon Dioxide 28 Anion Gap 18 BUN 11 Creatinine 0.8 Est GFR ( Amer) > 60 Est GFR (Non-Af Amer) > 60 POC Glucose (mg/dL) Random Glucose 172 H Hemoglobin A1c Calcium 9.6 Phosphorus 3.6 Magnesium 1.6 Total Bilirubin 0.7 AST 17 ALT 34 Alkaline Phosphatase 69 Total Creatine Kinase CK-MB (Mass) Troponin I Total Protein 7.6 Albumin 4.2 Globulin 3.4 Albumin/Globulin Ratio 1.2 EKG/Cardiology Studies: Cardiology / EKG Studies 02/14/18 15:49 ELECTROCARDIOGRAM Stat Comment: Mode Of Transportation: PORTABLE Reason For Exam: c/o SOB Fingerstick Blood Sugar Results: 164 Critical Care Progress Note - Nutrition Nutrition: Nutrition Category Date Time Status Diabetic [Consistent Carbohydrate] [DIET] Diets 02/12/18 Dinner Active Assessment/Plan - Assessment and Plan (Free Text) Assessment: 62 yo M amitted to ICU in 3rd degree HB. Neuro: CV: -3rd degree HB, -bradycardia treated w/ dopamine, refractory to atropine -echo: dilated LA, mild TR/MR -transferred to [facility] [place], cath found 3 vessel dz. -now being transported [facility] [place]-->James GI: -diabetic diet Endo: -ISS Ppx -pepcid -heparin 5000 sc -SCD
--- NOTE | 2018-02-16 15:05 | CARD ---
APPROVED REPORT Date of service: 02/14/2018 EKG Measurement Heart [id number] <Conclusion> Sinus bradycardia 2:1 AV block with occasional premature ventricular complexes ? paced complex Right bundle branch block Left anterior fascicular block Bifascicular block Abnormal ECG
[2018-02-17 11:54] LABS: 23 KD (IGG) BAND Nonreactive
[2018-02-17] MEDS ORDERED: Pneumococcal 23-Valent Vaccine IM ONE (12:00)
== END 2018-02-15 05:30 | disposition short-term general hospital (02) | DRG 310 ==
LOC: C.ER 16:54 → C.9I 18:47
PROVIDERS: ADMIT Internal Medicine Nephrology; ATTEND Internal Medicine Nephrology
DX: I44.2 Atrioventricular block, complete (principal); I25.10 Atherosclerotic heart disease of native coronary artery without angina pectoris; I10 Essential (primary) hypertension; E11.9 Type 2 diabetes mellitus without complications; Z79.4 Long term (current) use of insulin